=== PATIENT | female | born 1930 | race Caucasian/White ===

== ENCOUNTER → 2016-09-22 | Outpatient (REF) | payer MEDICARE ==
[~2016-09-22] MED LIST: /FENT50PA TD; /FENT75PA TD; /MIRT15TA OR; /SUCR1TA OR; /WARF25TA OR; /WARF5TA OR; ACET65TA OR; ATEN25TA OR; ATEN50TA2 OR; CARA1TAB2 PO; CIPR500T19 OR; COLA100C2 OR; FENT50DI21 TD; FERR325T OR; FURO40TA2 OR; ISOS10TA2 OR; ISOS20TA3 OR; LIDO5DIS EX; LIDODERM PATCH; MEGE40TA2 OR; MEGESTROL ACETATE; MILKSUS OR; NEUR100C OR; NORCOTAB PO; PRIL20CA OR; PRIL40CA OR; PRIL40CA PO; REME15TA OR; VICO5TAB OR; WARF05TA PO; WARF1TAB OR; WARFARIN; lidoderm patch; warfarin PO
[2016-09-22 17:19] LABS: PERCENT SATURATION 13.4 % (13.2-37.4)
== END ==
LOC: M LAB REF 16:33
PROVIDERS: ATTEND Nurse Practitioner Adult Health
DX: D64.9 Anemia, unspecified (principal)

== ENCOUNTER 2016-10-02 17:44 | Emergency (ER) | payer MEDICARE ==
[~2016-10-02] VITALS: Ht 157.5 cm; Wt 53.1 kg
[2016-10-02 17:57] VITALS: BP 180/90
[2016-10-02] MEDS ORDERED: BUDE3CAP (18:10)
[2016-10-02] MEDS ORDERED: MONT10TA2 (18:10)
[2016-10-02] MEDS ORDERED: ATOR1TAB21 (18:10)
[2016-10-02] MEDS ORDERED: ELIQ5TAB (18:10)
[2016-10-02] MEDS ORDERED: ATEN50TA2 (18:10)
[2016-10-02] MEDS ORDERED: ASPIRIN 81 MG CHEW TABLET PO ONE (18:30)
[2016-10-02 19:05] LABS: MEAN CORPUSCULAR HEMOGLOBIN 31.7 pg (27.0-33.0); MEAN CORPUSCULAR HGB CONC 32.6 g/dl (32.0-36.5); MEAN CORPUSCULAR VOLUME 97.1 fl (80.0-96.0); RED CELL DISTRIBUTION WIDTH 13.4 % (11.5-14.5); WHITE BLOOD COUNT 4.3 K/mm3 (4.0-10.0)
[2016-10-02 19:31] LABS: BASOPHILS 1 % (0-4); EOSINOPHILS 2 % (0-5)
[2016-10-02 19:32] LABS: HYPOCHROMASIA 2+
[2016-10-02 19:38] LABS: ANION GAP 8 MEQ/L (8-16); BLOOD UREA NITROGEN 13 MG/DL (7-18); CALCIUM LEVEL 9.1 MG/DL (8.8-10.2); CARBON DIOXIDE LEVEL 27 MEQ/L (21-32); CHLORIDE LEVEL 106 MEQ/L (98-107); CREATININE FOR GFR 0.67 MG/DL (0.55-1.02); GLOMERULAR FILTRATION RATE > 60.0 (>32); GLUCOSE, FASTING 100 MG/DL (83-110); SODIUM LEVEL 141 MEQ/L (136-145)
[2016-10-02] MEDS ORDERED: ISOVUE-370 76% 100ML VIAL (Q9967) As Ordered ONE (19:40)
[2016-10-02] MEDS ORDERED: PERCOCET 5MG/325MG TAB PO ONE (20:15)
--- NOTE | 2016-10-02 20:20 | REPUSA ---
CT of the head Clinical history: Headache. Protocol: Multiple axial CT images obtained with 5 mm slice thickness were obtained through the head without administration of contrast. Comparison: 01/01/2016. Findings: The ventricles and sulci are symmetric but prominent in size bilaterally. There are periven tricular areas of low attenuation throughout the deep white matter. There is no evidence of acute hem orrhage or infarct. There is no midline shift, mass effect, or extra-axial fluid collection. The osse ous structures are unremarkable. The visualized paranasal sinuses and mastoid air cells are clear. Impression: No acute hemorrhage or infarct. Findings are consistent with stable age-related atrophy a nd chronic small vessel ischemic disease.
--- NOTE | 2016-10-02 20:30 | REPUSA ---
CT angiogram of the chest Clinical statement: Chest pain. Technique: Multiple axial CT images were obtained from the thoracic inlet through the upper abdomen a fter a bolus administration of nonionic intravenous contrast. Coronal and sagittal reconstructions we re also obtained. Comparison: None. Findings: The pulmonary arteries are well-opacified with contrast, with no intraluminal filling defec ts to suggest embolism. The thoracic aorta is unremarkable. Thyroid gland is within normal limits. Th ere is no thoracic lymphadenopathy. There are no pericardial or pleural effusions. The lungs are izzy r, other than minimal atelectasis in the medial right lung base. Limited imaging of the upper abdomen is unremarkable. There are no suspicious osseous lesions. Impression: Unremarkable CT examination of the chest. No evidence of pulmonary embolism. Minimal atel ectasis in the medial right lung base.
[2016-10-02] MEDS ORDERED: OXYCODONE/APAP 5MG/325MG(BULK FOR ED) 1 TABLET PO ONE (21:30)
--- NOTE | 2016-10-03 01:06 | REP ---
Clinical: Pain. Technique: Internal rotation, external rotation, and Y view. Findings: Three views of the left shoulder demonstrates age-related osteopenia and advanced degenerative changes including osteophytosis at the acromioclavicular joint, cortical irregularities involving the acromion and humeral head as well as near complete obliteration of the subacromial space. No acute fracture dislocation. Impression: Advanced osteoarthritic degenerative changes. Signed by Jameel Hopper MD 10/03/2016 12:56 A
--- NOTE | 2016-10-03 08:36 | ECGEPIP ---
Stationary ECG Study 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
== END 2016-10-02 22:02 | disposition home or self-care (01) ==
LOC: M ED 18:22
DX: M25.512 Pain in left shoulder (principal); I48.91 Unspecified atrial fibrillation; I50.9 Heart failure, unspecified; M54.2 Cervicalgia; H92.02 Otalgia, left ear; K57.92 Diverticulitis of intestine, part unspecified, without perforation or abscess without bleeding; Z79.899 Other long term (current) drug therapy; Z79.01 Long term (current) use of anticoagulants
CPT/HCPCS: 70450; 71275; 73030; 80048; 82550; 82553; 84484; 85007; 85027; 93005; 99284; Q9967

== ENCOUNTER 2016-12-24 08:03 | Emergency (ER) | payer MEDICARE ==
[~2016-12-24 08:03] MED LIST changes: +ATEN50TA2; +ATOR1TAB21; +BUDE3CAP; +ELIQ5TAB PO; +MONT10TA2
[2016-12-24] MEDS ORDERED: ASPIRIN 81 MG CHEW TABLET PO ONE (08:30)
[2016-12-24 08:50] LABS: BASO % 0.6 % (0.0-1.0); EOS # 0.1 K/mm3 (0.0-0.50); EOS % 3.4 % (0.0-3.0); LARGE UNSTAINED CELL % 1.1 % (0.0-4.0); LYMPH # 0.8 K/mm3 (1.5-4.5); LYMPH % 19.9 % (24.0-44.0); MEAN CORPUSCULAR HEMOGLOBIN 30.9 pg (27.0-33.0); MEAN CORPUSCULAR HGB CONC 32.2 g/dl (32.0-36.5); MEAN CORPUSCULAR VOLUME 96.1 fl (80.0-96.0); MONO # 0.4 K/mm3 (0.0-0.8); MONO % 9.4 % (0.0-5.0); NEUTROPHILS # 2.5 K/mm3 (1.8-7.7); NEUTROPHILS % 65.5 % (36.0-66.0); PLATELET COUNT, AUTOMATED 207 k/mm3 (150-450); RED CELL DISTRIBUTION WIDTH 13.4 % (11.5-14.5); WHITE BLOOD COUNT 3.8 K/mm3 (4.0-10.0)
[2016-12-24] MEDS ORDERED: GABA-279 PO (08:51)
[2016-12-24] MEDS ORDERED: ISOS20TAB PO (08:51)
[2016-12-24] MEDS ORDERED: OMEP40CA2 PO (08:51)
[2016-12-24] MEDS ORDERED: OXYC1TAB23 PO (08:51)
[2016-12-24] MEDS ORDERED: MIRT15TA3 PO (08:51)
--- NOTE | 2016-12-24 08:51 | REP ---
Chest one-view HISTORY: Chest pain Comparison: 12/17/2015 A minimal increase in interstitial markings is present in the lungs consistent with chronic interstitial fibrosis. The heart is upper limits of normal in size. The pulmonary vasculature is normal in appearance. Degenerative change is present in the shoulders. Impression: Chronic interstitial fibrosis. Signed by Issa Pierce MD 12/24/2016 08:42 A
[2016-12-24 08:54] LABS: INR 1.18
[2016-12-24 09:15] LABS: ALBUMIN 3.8 GM/DL (3.2-5.2); ALBUMIN/GLOBULIN RATIO 1.09 (1.00-1.93); ALKALINE PHOSPHATASE 111 U/L (45-117); ALT/SGPT 21 U/L (12-78); ANION GAP 10 MEQ/L (8-16); AST/SGOT 19 U/L (15-37); BILIRUBIN,DIRECT 0.2 MG/DL (0.0-0.2); BILIRUBIN,TOTAL 0.5 MG/DL (0.2-1.0); BLOOD UREA NITROGEN 15 MG/DL (7-18); CALCIUM LEVEL 8.6 MG/DL (8.8-10.2); CARBON DIOXIDE LEVEL 27 MEQ/L (21-32); CHLORIDE LEVEL 109 MEQ/L (98-107); CREATININE FOR GFR 0.77 MG/DL (0.55-1.02); FREE T4 1.26 NG/DL (0.76-1.46); GLOMERULAR FILTRATION RATE > 60.0 (>32); GLUCOSE, FASTING 98 MG/DL (83-110); POTASSIUM SERUM 4.7 MEQ/L (3.5-5.1); SODIUM LEVEL 146 MEQ/L (136-145); TOTAL PROTEIN 7.3 GM/DL (6.4-8.2)
[2016-12-24 13:12] VITALS: BP 140/89
--- NOTE | 2016-12-25 08:28 | ECGEPIP ---
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
--- NOTE | 2016-12-25 08:32 | ECGEPIP ---
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
== END 2016-12-24 13:13 | disposition home or self-care (01) ==
LOC: M ED 08:03
DX: R07.9 Chest pain, unspecified (principal); I50.9 Heart failure, unspecified; I49.9 Cardiac arrhythmia, unspecified; I11.0 Hypertensive heart disease with heart failure; D75.9 Disease of blood and blood-forming organs, unspecified; M54.9 Dorsalgia, unspecified; K59.00 Constipation, unspecified; Z91.030 Bee allergy status; Z88.8 Allergy status to other drugs, medicaments and biological substances; Z79.899 Other long term (current) drug therapy; Z79.01 Long term (current) use of anticoagulants

== ENCOUNTER → 2017-02-06 | Outpatient (REF) | payer MEDICARE ==
[~2017-02-06] MED LIST changes: +AZIT-12 PO; +GABA-279 PO; +HYDR-3713 PO; +IMOD2CAP PO; +ISOS20TAB PO; +MIRT15TA3 PO; +NITR4TASL SL; +OMEP40CA2 PO; +OXYC1TAB23 PO; +POTA20TA PO; +SUCR1SUS PO
[2017-02-06 13:30] LABS: EOS # 0.1 10^3/uL (0.0-0.50); EOS % 2.3 % (0.0-3.0); LYMPH # 0.8 10^3/uL (1.5-4.5); LYMPH % 20.8 % (24.0-44.0); MEAN CORPUSCULAR HEMOGLOBIN 30.3 pg (27.0-33.0); MEAN CORPUSCULAR HGB CONC 31.8 g/dl (32.0-36.5); MEAN CORPUSCULAR VOLUME 95.2 fl (80.0-96.0); MONO # 0.5 10^3/uL (0.0-0.8); MONO % 14.1 % (0.0-5.0); NEUTROPHILS # 2.4 10^3/uL (1.8-7.7); NEUTROPHILS % 61.8 % (36.0-66.0); PLATELET COUNT, AUTOMATED 177 10^3/uL (150-450); WHITE BLOOD COUNT 3.8 10^3/uL (4.0-10.0)
[2017-02-06 13:34] LABS: ADD MANUAL DIFFER NO; DIFF SLIDE NUMBER 219
[2017-02-06 13:38] LABS: ALBUMIN 3.7 GM/DL (3.2-5.2); ALBUMIN/GLOBULIN RATIO 1.16 (1.00-1.93); ALKALINE PHOSPHATASE 104 U/L (45-117); ALT/SGPT 23 U/L (12-78); ANION GAP 6 MEQ/L (8-16); AST/SGOT 18 U/L (15-37); BILIRUBIN,TOTAL 0.5 MG/DL (0.2-1.0); BLOOD UREA NITROGEN 19 MG/DL (7-18); CALCIUM LEVEL 8.8 MG/DL (8.8-10.2); CARBON DIOXIDE LEVEL 28 MEQ/L (21-32); CHLORIDE LEVEL 108 MEQ/L (98-107); CREATININE FOR GFR 0.68 MG/DL (0.55-1.02); GLOMERULAR FILTRATION RATE > 60.0 (>32); GLUCOSE, FASTING 99 MG/DL (83-110); POTASSIUM SERUM 4.3 MEQ/L (3.5-5.1); SODIUM LEVEL 142 MEQ/L (136-145); TOTAL PROTEIN 6.9 GM/DL (6.4-8.2)
[2017-02-06 14:42] LABS: ERYTHROCYTE SEDIMENTATION RATE 25 mm/hr (0-42)
== END ==
LOC: M LABDRWAD 12:19
PROVIDERS: ATTEND Physician Assistant
DX: R51 Headache (principal)

== ENCOUNTER 2017-03-09 14:39 | Inpatient (IN) | payer MEDICARE ==
[~2017-03-09] VITALS: Ht 154.9 cm; Wt 58.0 kg
[~2017-03-09 14:39] MED LIST changes: -AZIT-12 PO; -HYDR-3713 PO; -IMOD2CAP PO; -NITR4TASL SL; -POTA20TA PO; -SUCR1SUS PO
[2017-03-09] MEDS ORDERED: SUCR1SUS PO (14:49)
[2017-03-09] MEDS ORDERED: HYDR-3713 PO (14:49)
[2017-03-09] MEDS ORDERED: IMOD2CAP PO (14:51)
[2017-03-09] MEDS ORDERED: NS 1,000 ML IV SCH (15:01)
[2017-03-09] MEDS ORDERED: NS 500 ML IV ONE (15:15)
[2017-03-09] MEDS ORDERED: ONDANSETRON 4MG/2ML VIAL (J2405) IV ONE (15:15)
[2017-03-09] MEDS ORDERED: MORPHINE 2 MG/ML 1ML SYRINGE IV PRN (15:15)
[2017-03-09 15:28] LABS: BASO % 0.3 % (0.0-1.0); EOS # 0.1 10^3/uL (0.0-0.50); EOS % 1.1 % (0.0-3.0); IMMATURE GRANULOCYTE % 0.8 % (0-0); LYMPH # 1.3 10^3/uL (1.5-4.5); LYMPH % 15.7 % (24.0-44.0); MEAN CORPUSCULAR HEMOGLOBIN 30.5 pg (27.0-33.0); MEAN CORPUSCULAR HGB CONC 32.7 g/dl (32.0-36.5); MEAN CORPUSCULAR VOLUME 93.3 fl (80.0-96.0); MONO # 1.9 10^3/uL (0.0-0.8); MONO % 24.3 % (0.0-5.0); NEUTROPHILS # 4.6 10^3/uL (1.8-7.7); NEUTROPHILS % 57.8 % (36.0-66.0); PLATELET COUNT, AUTOMATED 264 10^3/uL (150-450); RED CELL DISTRIBUTION WIDTH 14.8 % (11.5-14.5)
[2017-03-09 15:41] LABS: INR 1.56
[2017-03-09] MEDS ORDERED: ISOVUE-370 76% 100ML VIAL (Q9967) As Ordered ONE (15:44)
[2017-03-09 15:58] LABS: ALBUMIN 3.2 GM/DL (3.2-5.2); ALKALINE PHOSPHATASE 97 U/L (45-117); ALT/SGPT 27 U/L (12-78); ANION GAP 8 MEQ/L (8-16); AST/SGOT 22 U/L (7-37); BILIRUBIN,DIRECT 0.2 MG/DL (0.0-0.2); BILIRUBIN,TOTAL 0.4 MG/DL (0.2-1.0); BLOOD UREA NITROGEN 24 MG/DL (7-18); CALCIUM LEVEL 8.9 MG/DL (8.8-10.2); CARBON DIOXIDE LEVEL 27 MEQ/L (21-32); CHLORIDE LEVEL 108 MEQ/L (98-107); CREATININE FOR GFR 0.83 MG/DL (0.55-1.02); GLOMERULAR FILTRATION RATE > 60.0 (>32); GLUCOSE, FASTING 111 MG/DL (83-110); SODIUM LEVEL 143 MEQ/L (136-145); TOTAL PROTEIN 6.4 GM/DL (6.4-8.2)
[2017-03-09 16:15] LABS: POTASSIUM SERUM 2.8 MEQ/L (3.5-5.1)
[2017-03-09] MEDS ORDERED: POTASSIUM CHLORIDE 10 MEQ SR TABLET PO ONE (16:30)
--- NOTE | 2017-03-09 16:46 | REP ---
CT of the abdomen pelvis with IV contrast, without bowel contrast: The visualized lung hill are unremarkable. The hepatic parenchyma is homogeneous and unremarkable. The patient has a cholecystectomy. The common biliary duct measures 2.5 cm in diameter is markedly distended. This is unchanged from the prior study. However, do not identify intrahepatic biliary duct dilatation. The pancreas appears atrophic but is otherwise unremarkable. The spleen is unremarkable except for calcified granuloma. The adrenals and kidneys are unremarkable. Abdominal aorta is unremarkable. There is no bowel distension or obstruction. However, there is bowel wall thickening and mucosal enhancement of the transverse colon, descending colon and sigmoid colon compatible with colitis in the appropriate clinical setting. On the comparison study there was significant diverticulosis of the descending colon and sigmoid colon. The diverticuli are effaced on the current study from the colonic wall thickening. There is no ascites. Pelvis: There is beam-hardening artifact from the left hip arthroplasty obscuring visualization. The patient indicates she has a hysterectomy. There is no ascites or adenopathy. Impression: Wall thickening and mucosal enhancement of the transverse colon, descending colon and sigmoid colon compatible with colitis in the appropriate clinical context. There is chronic marked dilatation of the common biliary duct, unchanged from the prior study. No definite intrahepatic biliary duct dilatation. No ascites. No bowel distension or obstruction. Signed by Justin Kumar MD 03/09/2017 04:38 P
[2017-03-09] MEDS ORDERED: NITR4TASL SL (16:56)
[2017-03-09] MEDS ORDERED: MAG SULF 1GM/100ML (MAG RUN) 1 GM in APPROPRIATE DILUENT 1 EA IV ONE (17:15)
[2017-03-09] MEDS ORDERED: NORCO, ANEXSIA 5/325MG TABLET (HYDROcodone/ACETAMINOPHEN) PO PRN ×2 (17:15)
[2017-03-09 18:15] VITALS: BP 118/66
[2017-03-09] MEDS: NS 1,000 ML IV SCH ×2 (19:18→23:52)
[2017-03-09 20:30] VITALS: BP 118/68
[2017-03-09] MEDS: OMEPRAZOLE 20 MG CAP PO SCH (20:35)
[2017-03-09] MEDS: MIRTAZAPINE 15 MG TAB PO SCH (20:35)
[2017-03-09] MEDS: APIXABAN 5 MG TAB (ELIQUIS) PO SCH (20:35)
[2017-03-09] MEDS: GABAPENTIN 100 MG CAP PO SCH (20:35)
[2017-03-09] MEDS: ATENOLOL 50 MG TAB PO SCH (20:35)
[2017-03-09] MEDS: metroNIDAZOLE 500 MG in APPROPRIATE DILUENT 1 EA IV SCH (20:41)
[2017-03-09] MEDS ORDERED: CIPROFLOXACIN 400 MG in APPROPRIATE DILUENT 1 EA IV SCH (21:00)
[2017-03-09 23:19] LABS: ANION GAP 9 MEQ/L (8-16); BLOOD UREA NITROGEN 18 MG/DL (7-18); CALCIUM LEVEL 8.1 MG/DL (8.8-10.2); CARBON DIOXIDE LEVEL 23 MEQ/L (21-32); CHLORIDE LEVEL 112 MEQ/L (98-107); CREATININE FOR GFR 0.64 MG/DL (0.55-1.02); GLOMERULAR FILTRATION RATE > 60.0 (>32); GLUCOSE, FASTING 113 MG/DL (83-110); MAGNESIUM LEVEL 1.8 MG/DL (1.8-2.4); POTASSIUM SERUM 2.9 MEQ/L (3.5-5.1); SODIUM LEVEL 144 MEQ/L (136-145)
[2017-03-09] MEDS ORDERED: POTASSIUM CHLORIDE INJ 40 MEQ in D5W/LR 1,000 ML IV SCH (23:45)
[2017-03-09] MEDS: KCL 10MEQ IN 100ML SWI (KRUN) 100 ML IV SCH (23:52)
[2017-03-10] MEDS: KCL 10MEQ IN 100ML SWI (KRUN) 100 ML IV SCH ×4 (01:48→06:59)
[2017-03-10] MEDS ORDERED: KCL 20MEQ IN 100ML SWI (KRUN) 20 MEQ in APPROPRIATE DILUENT 1 EA IV SCH ×2 (04:15)
--- NOTE | 2017-03-10 04:33 | HPE ---
DATE OF ADMISSION: 03/09/2017 This is a patient of Michelle Rowan. CHIEF COMPLAINT: Diarrhea. The following is a summary of her presentation: This is an 86-year-old female who has had 3 weeks of loose stools. She had multiple, multiple stools a day, has had trouble making it to the bathroom, has not been able to see her primary care provider because she is out of town. Did go to the [place] urgent care. Apparently, she was given reassurance. That was approximately a week ago on 03/02. She has taken some Imodium at home with no impact. She had fever at the beginning of her illness. She has had left-sided abdominal pain, which is worse with a bowel movement. She has experienced urgency. Did not describe any hematochezia. Has not had any vomiting. Has not taken antibiotics recently. Does have well water. No history of recent travel. No pets. PAST MEDICAL HISTORY: Notable for: 1. Paroxysmal atrial fibrillation. 2. Congestive heart failure with diastolic dysfunction. 3. Mitral valve disease. 4. Hypertension. 5. Left ventricular hypertrophy. 6. Diverticulosis. 7. Gastroesophageal reflux disease (GERD). 8. History of small bowel obstruction secondary to adhesions. SURGICAL HISTORY: Notable for: 1. Five hernia surgeries. 2. Cholecystectomy. 3. Partial hysterectomy. 4. Left knee replacement. 5. Left hip replacement. ALLERGIES: No known drug allergies. MEDICATIONS: At home include: - [place] - Eliquis - atenolol - atorvastatin - Neurontin - Imodium - mirtazapine - sublingual nitroglycerin - omeprazole - sucralfate REVIEW OF SYSTEMS: Notable for frontal headache, which is new in the last few days. No visual changes. No runny nose. No sore throat. No cough. No shortness of breath. No palpitations. Abdominal pain as previously described, otherwise unremarkable. FAMILY HISTORY: Unremarkable due to advanced age. SOCIAL HISTORY: She walks with a walker. Does not use alcohol or tobacco. Has no pets. PHYSICAL EXAMINATION: Temperature 97.2, pulse 78, respiratory rate 18, blood pressure 145/65, 94% on room air. She weighs 54 kg. She is awake, appropriately interactive, pleasantly conversant, a reasonable historian. Sinuses are nontender. Pupils equally round and reactive, anicteric, not injected. Mucous membranes are dry. Neck is supple. Breathing is symmetrical. I:E ratio is 1:3. Heart is distant sounding, normal S1, S2, irregularly irregular. Radial pulses 2+. Capillary refill is less than 2 seconds. Abdomen is soft, nondistended, non-tympanic, mild left lower quadrant tenderness without rebound or guarding. No lower extremity edema. She is moving all four extremities. Cranial nerves II-XII are grossly intact. She has normal mood and affect. White cell count is 8, hemoglobin 10.4, and platelets are 264. Potassium is 2.8, BUN 24, creatinine 0.83, and magnesium is 1.6. Liver function tests within normal range. INR is 1.56. GI panel is pending. CT of the abdomen and pelvis shows wall thickening and mucosal enhancement of the transverse colon, descending colon and sigmoid colon compatible with colitis. Chronic marked dilatation of the common bile duct. No bowel distention or obstruction. No ascites. My assessment is as follows: This is an 86-year-old with 3 weeks of diarrhea and clinical dehydration. The patient will require two-midnight hospital stay and telemetry monitoring. Plan will be as follows: 1. Gastrointestinal (GI). The patient likely has an infectious etiology for her diarrhea. I do not believe it is Clostridium (C) difficile in this context because I believe she would be sicker. Possibility of colitis does occur to me and I have started her on Flagyl and Cipro empirically. Will await GI panel and further guide treatment from there. We have started intravenous (IV) fluids. Will put her on clear liquid diet. 2. Patient has paroxysmal atrial fibrillation. We will monitor her on telemetry as she is at risk for high rate. Will continue with her Eliquis. 3. She has history of congestive heart failure, diastolic dysfunction, but appears clinically dry. Will give IV fluids. 4. Patient has hypertension. 5. Patient has left ventricular hypertrophy. 6. Patient has history of gastroesophageal reflux disease (GERD). She is on a proton pump inhibitor (PPI) and sucralfate. PPI increases her risk of C. Difficile. 7. Deep venous thrombosis (DVT) prophylaxis will be Eliquis. 8. Patient has a healthcare proxy, who she defines as Annabella Masterson.
[2017-03-10] MEDS: metroNIDAZOLE 500 MG in APPROPRIATE DILUENT 1 EA IV SCH (05:15)
[2017-03-10 05:55] VITALS: BP 115/58
[2017-03-10 06:35] LABS: MEAN CORPUSCULAR HEMOGLOBIN 29.7 pg (27.0-33.0); MEAN CORPUSCULAR HGB CONC 31.9 g/dl (32.0-36.5); MEAN CORPUSCULAR VOLUME 93.1 fl (80.0-96.0); PLATELET COUNT, AUTOMATED 232 10^3/uL (150-450); WHITE BLOOD COUNT 5.4 10^3/uL (4.0-10.0)
[2017-03-10 06:56] LABS: ANION GAP 9 MEQ/L (8-16); BLOOD UREA NITROGEN 16 MG/DL (7-18); CALCIUM LEVEL 8.1 MG/DL (8.8-10.2); CARBON DIOXIDE LEVEL 22 MEQ/L (21-32); CHLORIDE LEVEL 112 MEQ/L (98-107); CREATININE FOR GFR 0.61 MG/DL (0.55-1.02); GLOMERULAR FILTRATION RATE > 60.0 (>32); GLUCOSE, FASTING 89 MG/DL (83-110); MAGNESIUM LEVEL 1.7 MG/DL (1.8-2.4); POTASSIUM SERUM 3.2 MEQ/L (3.5-5.1); SODIUM LEVEL 143 MEQ/L (136-145)
[2017-03-10] MEDS: SUCRALFATE SUSP 1GM/10ML UD PO SCH ×3 (07:58→17:16)
[2017-03-10] MEDS: OMEPRAZOLE 20 MG CAP PO SCH ×2 (08:00→20:41)
[2017-03-10] MEDS: APIXABAN 5 MG TAB (ELIQUIS) PO SCH ×2 (08:00→20:40)
[2017-03-10] MEDS: ATORVASTATIN 20 MG TAB PO SCH (08:01)
[2017-03-10] MEDS: ATENOLOL 50 MG TAB PO SCH ×2 (08:01→20:37)
[2017-03-10] MEDS: GABAPENTIN 100 MG CAP PO SCH ×3 (08:01→20:40)
[2017-03-10] MEDS ORDERED: MAG SULF 1GM/100ML (MAG RUN) 1 GM in APPROPRIATE DILUENT 1 EA IV ONE (09:00)
[2017-03-10] MEDS: POTASSIUM CHLORIDE 10 MEQ SR TABLET PO SCH (09:44)
[2017-03-10] MEDS: AZITHROMYCIN INJ 500 MG, VIAL MATE ADAPTER 1 EACH in D5W 250 ML IV SCH (09:44)
--- NOTE | 2017-03-10 12:35 | ECGEPIP ---
Stationary ECG Study 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
[2017-03-10 14:00] VITALS: BP 108/61
--- NOTE | 2017-03-10 14:08 | IPNPDOC ---
Date Seen The patient was seen on 03/10/17. Progress Note SUBJECTIVE: Patient is a 86yo female admitted for n/v/d last evening. Feeling a little better. Denies: f/c/r, cough, prod sputum. GI panel: campylobacter OBJECTIVE PHYSICAL EXAMINATION: VITAL SIGNS: Please see below. GENERAL: NAD, A&OX3 HEENT: PERRLA, throat supple, neck supple, no JVD CARDIOVASCULAR: RRR. RESPIRATORY: CTA BILATERALLY. ABDOMINAL: soft, NT/ND, normoactive bowel sounds, nontender EXTREMITIES: no edema, no calf tenderness NEUROLOGICAL: CN II-XII Grossly intact, no deficits PSYCHOLOGICAL: negative LABORATORY DATA: Please see below. MICROBIOLOGY: Please see below. DVT prophylaxis ordered?: yes ASSESSMENT AND PLAN: This is a 86 yo female with diarrhea. PROBLEMS: 1. Gastrointestinal (GI). GI panel positive for campylobacter. Antibiotic coverage has been changed to zithromax. Advance diet and plan to d/c fluids if tolerating PO intake. 2. Patient has paroxysmal atrial fibrillation. We will monitor her on telemetry as she is at risk for high rate. Will continue with her Eliquis. 3. She has history of congestive heart failure, diastolic dysfunction, but appears clinically dry. Will give IV fluids. 4. Hypertension: stable/monitor 5. Patient has left ventricular hypertrophy: no current signs of volume overload. 6. Patient has history of gastroesophageal reflux disease (GERD). She is on a proton pump inhibitor (PPI) and sucralfate. PPI increases her risk of C. Difficile. 7. Deep venous thrombosis (DVT) prophylaxis will be Eliquis. DISPOSITION: anticipate home discharge tomorrow. VS, I&O, 24H, [place] Vital Signs/I&O Vital Signs Date Time Temp Pulse Resp B/P (MAP) Pulse Ox O2 Delivery O2 Flow Rate FiO2 03/10/17 11:47 Room Air 03/10/17 08:01 72 126/64 03/10/17 05:55 97.9 16 98 2.0 I&O- Last 24 Hours up to 6 AM 03/11/17 06:00 Intake Total 0 ml Balance 0 ml Laboratory Data 24H LABS Laboratory Tests 2 03/09/17 15:19: Immature Granulocyte % (Auto) 0.8H, White Blood Count 8.0, Red Blood Count 3.41L , Hemoglobin 10.4L, Hematocrit 31.8L, Mean Corpuscular Volume 93.3, Mean Corpuscular Hemoglobin 30.5, Mean Corpuscular Hemoglobin Concent 32.7, Red Cell Distribution Width 14.8H, Platelet Count 264, Neutrophils (%) (Auto) 57.8, Lymphocytes (%) (Auto) 15.7L, Monocytes (%) (Auto) 24.3H, Eosinophils (%) (Auto ) 1.1, Basophils (%) (Auto) 0.3, Neutrophils # (Auto) 4.6, Lymphocytes # (Auto) 1.3L, Monocytes # (Auto) 1.9H, Eosinophils # (Auto) 0.1, Basophils # (Auto) 0.0 , Immature Granulocyte # (Auto) 0.1H, Nucleated Red Blood Cells % (auto) 0.0, Prothrombin Time 19.0H, Prothromb Time International Ratio 1.56, Anion Gap 8, Glomerular Filtration Rate > 60.0, Calcium Level 8.9, Magnesium Level 1.6L, Aspartate Amino Transf (AST/SGOT) 22, Alanine Aminotransferase (ALT/SGPT) 27, Alkaline Phosphatase 97, Total Bilirubin 0.4, Direct Bilirubin 0.2, Total Protein 6.4, Albumin 3.2, Albumin/Globulin Ratio 1.00, Lipase 85 03/09/17 22:33: Anion Gap 9, Glomerular Filtration Rate > 60.0, Calcium Level 8.1L, Magnesium Level 1.8, Blood Urea Nitrogen 18, Creatinine 0.64, Sodium Level 144, Potassium Level 2.9*L, Chloride Level 112H, Carbon Dioxide Level 23 03/10/17 06:15: Nucleated Red Blood Cells % (auto) 0.0, Anion Gap 9, Glomerular Filtration Rate > 60.0, Calcium Level 8.1L, Magnesium Level 1.7L, Blood Urea Nitrogen 16, Creatinine 0.61, Sodium Level 143, Potassium Level 3.2L, Chloride Level 112H, Carbon Dioxide Level 22 CBC/BMP Laboratory Tests 03/09/17 15:19 Red Blood Count 3.41 L, Mean Corpuscular Volume 93.3, Mean Corpuscular Hemoglobin 30.5, Mean Corpuscular Hemoglobin Concent 32.7, Red Cell Distribution Width 14.8 H, Neutrophils (%) (Auto) 57.8, Lymphocytes (%) (Auto) 15.7 L, Monocytes (%) (Auto) 24.3 H, Eosinophils (%) (Auto) 1.1, Basophils (%) ( Auto) 0.3, Neutrophils # (Auto) 4.6, Lymphocytes # (Auto) 1.3 L, Monocytes # ( Auto) 1.9 H, Eosinophils # (Auto) 0.1, Basophils # (Auto) 0.0 03/09/17 22:33 Calcium Level 8.1 L 03/10/17 06:15 Red Blood Count 3.06 L, Mean Corpuscular Volume 93.1, Mean Corpuscular Hemoglobin 29.7, Mean Corpuscular Hemoglobin Concent 31.9 L, Red Cell Distribution Width 15.0 H, Calcium Level 8.1 L Microbiology Microbiology 03/09/17 Gastrointestinal Tract Panel (PCR) - Final, Complete Campylobacter CASSIDY DECKER DO Mar 10, 2017 13:56
[2017-03-10 14:27] LABS: ALBUMIN 2.6 GM/DL (3.2-5.2); ANION GAP 10 MEQ/L (8-16); BLOOD UREA NITROGEN 15 MG/DL (7-18); CALCIUM LEVEL 8.1 MG/DL (8.8-10.2); CARBON DIOXIDE LEVEL 22 MEQ/L (21-32); CHLORIDE LEVEL 112 MEQ/L (98-107); CREATININE FOR GFR 0.56 MG/DL (0.55-1.02); GLOMERULAR FILTRATION RATE > 60.0 (>32); GLUCOSE, FASTING 130 MG/DL (83-110); MAGNESIUM LEVEL 2.2 MG/DL (1.8-2.4); PHOSPHORUS LEVEL 1.9 MG/DL (2.5-4.9); POTASSIUM SERUM 3.7 MEQ/L (3.5-5.1); SODIUM LEVEL 144 MEQ/L (136-145)
--- NOTE | 2017-03-10 18:24 | ECGEPIP ---
Stationary ECG Study 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
[2017-03-10 20:20] VITALS: BP 100/58
[2017-03-10] MEDS: MIRTAZAPINE 15 MG TAB PO SCH (20:40)
[2017-03-10] MEDS: NS 1,000 ML IV SCH (22:09)
[2017-03-11 05:35] VITALS: BP 128/69
[2017-03-11 06:07] LABS: MEAN CORPUSCULAR HEMOGLOBIN 29.4 pg (27.0-33.0); MEAN CORPUSCULAR HGB CONC 31.7 g/dl (32.0-36.5); MEAN CORPUSCULAR VOLUME 92.9 fl (80.0-96.0); PLATELET COUNT, AUTOMATED 255 10^3/uL (150-450); RED CELL DISTRIBUTION WIDTH 15.2 % (11.5-14.5); WHITE BLOOD COUNT 7.3 10^3/uL (4.0-10.0)
[2017-03-11 06:31] LABS: ANION GAP 8 MEQ/L (8-16); BLOOD UREA NITROGEN 10 MG/DL (7-18); CALCIUM LEVEL 8.2 MG/DL (8.8-10.2); CARBON DIOXIDE LEVEL 22 MEQ/L (21-32); CHLORIDE LEVEL 113 MEQ/L (98-107); CREATININE FOR GFR 0.55 MG/DL (0.55-1.02); GLOMERULAR FILTRATION RATE > 60.0 (>32); GLUCOSE, FASTING 96 MG/DL (83-110); MAGNESIUM LEVEL 1.8 MG/DL (1.8-2.4); POTASSIUM SERUM 3.3 MEQ/L (3.5-5.1); SODIUM LEVEL 143 MEQ/L (136-145)
[2017-03-11] MEDS: POTASSIUM CHLORIDE 10 MEQ SR TABLET PO SCH (08:22)
[2017-03-11] MEDS: SUCRALFATE SUSP 1GM/10ML UD PO SCH ×3 (08:22→16:32)
[2017-03-11] MEDS: ATORVASTATIN 20 MG TAB PO SCH (08:23)
[2017-03-11] MEDS: GABAPENTIN 100 MG CAP PO SCH ×3 (08:23→20:17)
[2017-03-11] MEDS: OMEPRAZOLE 20 MG CAP PO SCH ×2 (08:23→20:17)
[2017-03-11] MEDS: APIXABAN 5 MG TAB (ELIQUIS) PO SCH ×2 (08:23→20:17)
[2017-03-11] MEDS: ATENOLOL 50 MG TAB PO SCH ×2 (08:23→20:18)
[2017-03-11] MEDS: AZITHROMYCIN INJ 500 MG, VIAL MATE ADAPTER 1 EACH in D5W 250 ML IV SCH (08:25)
[2017-03-11] MEDS: ACETAMINOPHEN TAB 650MG DOSE (2X325MG) PO PRN ×2 (11:20→22:32)
[2017-03-11] MEDS: NS 1,000 ML IV SCH (12:20)
[2017-03-11] MEDS: ONDANSETRON 4MG/2ML VIAL (J2405) IV PRN (12:35)
--- NOTE | 2017-03-11 12:37 | IPNPDOC ---
Date Seen The patient was seen on 03/11/17. Progress Note SUBJECTIVE: Patient is a 86yo female admitted couple nights ago for n/v/d last evening. Feeling little better. Had trouble with several loose BM's through the night last night and feels week. Denies: f/c/r, cough, prod sputum. GI panel: campylobacter OBJECTIVE PHYSICAL EXAMINATION: VITAL SIGNS: Please see below. GENERAL: NAD, A&OX3 HEENT: PERRLA, throat supple, neck supple, no JVD CARDIOVASCULAR: RRR. RESPIRATORY: CTA BILATERALLY. ABDOMINAL: soft, some distention but nontender, normoactive bowel sounds EXTREMITIES: no edema, no calf tenderness NEUROLOGICAL: CN II-XII Grossly intact, no deficits PSYCHOLOGICAL: negative LABORATORY DATA: Please see below. MICROBIOLOGY: Please see below. DVT prophylaxis ordered?: yes ASSESSMENT AND PLAN: This is a 86 yo female with diarrhea, decreased PO intake today. PROBLEMS: 1. Gastroenteritis: GI panel positive for campylobacter. Antibiotic coverage has been changed to zithromax. Advance diet, I'm concerned her PO intake has slowed down. Would like to keep her overnight for supportive therapy. 2. Patient has paroxysmal atrial fibrillation. Rate controlled. Will continue with her Eliquis. 3. Hypokalemia: supplement 4. She has history of congestive heart failure, diastolic dysfunction, but still appears clinically dry. Will give gentle IV fluids. 5. Hypertension: stable/monitor 6. Patient has left ventricular hypertrophy: no current signs of volume overload. 7. Patient has history of gastroesophageal reflux disease (GERD). She is on a proton pump inhibitor (PPI) and sucralfate. PPI increases her risk of C. Difficile. 8. Deep venous thrombosis (DVT) prophylaxis will be Eliquis. DISPOSITION: re-evaluate for potential d/c tomorrow. VS, I&O, 24H, Fishbone Vital Signs/I&O Vital Signs Date Time Temp Pulse Resp B/P (MAP) Pulse Ox O2 Delivery O2 Flow Rate FiO2 03/11/17 08:23 78 128/69 03/11/17 05:35 98.0 16 95 Room Air 03/10/17 22:00 2.0 Laboratory Data 24H LABS Laboratory Tests 2 03/10/17 12:58: Blood Urea Nitrogen 15, Creatinine 0.56, Sodium Level 144, Potassium Level 3.7, Chloride Level 112H, Carbon Dioxide Level 22, Anion Gap 10, Glomerular Filtration Rate > 60.0, Calcium Level 8.1L, Phosphorus Level 1.9L, Magnesium Level 2.2, Albumin 2.6L 03/11/17 06:00: Blood Urea Nitrogen 10, Creatinine 0.55, Sodium Level 143, Potassium Level 3.3L , Chloride Level 113H, Carbon Dioxide Level 22, Anion Gap 8, Glomerular Filtration Rate > 60.0, Calcium Level 8.2L, Magnesium Level 1.8, Nucleated Red Blood Cells % (auto) 0.0 CBC/BMP Laboratory Tests 03/10/17 12:58 Anion Gap 10 03/11/17 06:00 Red Blood Count 3.23 L, Mean Corpuscular Volume 92.9, Mean Corpuscular Hemoglobin 29.4, Mean Corpuscular Hemoglobin Concent 31.7 L, Red Cell Distribution Width 15.2 H, Calcium Level 8.2 L Microbiology Microbiology 03/11/17 Stool Occult Blood (ABISAI) - Final, Complete 03/09/17 Gastrointestinal Tract Panel (PCR) - Final, Complete Campylobacter CASSIDY DECKER DO Mar 11, 2017 12:37
[2017-03-11 14:00] VITALS: BP 123/94
[2017-03-11] MEDS: MIRTAZAPINE 15 MG TAB PO SCH (20:17)
[2017-03-11 22:00] VITALS: BP 146/77
[2017-03-12 05:52] LABS: MEAN CORPUSCULAR HGB CONC 32.1 g/dl (32.0-36.5); MEAN CORPUSCULAR VOLUME 93.6 fl (80.0-96.0); PLATELET COUNT, AUTOMATED 277 10^3/uL (150-450); WHITE BLOOD COUNT 6.2 10^3/uL (4.0-10.0)
[2017-03-12 06:00] VITALS: BP 140/85
[2017-03-12 06:13] LABS: ANION GAP 8 MEQ/L (8-16); BLOOD UREA NITROGEN 5 MG/DL (7-18); CALCIUM LEVEL 8.1 MG/DL (8.8-10.2); CARBON DIOXIDE LEVEL 23 MEQ/L (21-32); CHLORIDE LEVEL 115 MEQ/L (98-107); CREATININE FOR GFR 0.47 MG/DL (0.55-1.02); GLOMERULAR FILTRATION RATE > 60.0 (>32); GLUCOSE, FASTING 81 MG/DL (83-110); MAGNESIUM LEVEL 1.6 MG/DL (1.8-2.4); POTASSIUM SERUM 3.3 MEQ/L (3.5-5.1); SODIUM LEVEL 146 MEQ/L (136-145)
[2017-03-12] MEDS: NS 1,000 ML IV SCH ×2 (06:29→08:31)
[2017-03-12] MEDS: OMEPRAZOLE 20 MG CAP PO SCH ×2 (08:28→20:29)
[2017-03-12] MEDS: GABAPENTIN 100 MG CAP PO SCH ×3 (08:28→20:28)
[2017-03-12] MEDS: ATORVASTATIN 20 MG TAB PO SCH (08:28)
[2017-03-12] MEDS: SUCRALFATE SUSP 1GM/10ML UD PO SCH ×3 (08:28→17:00)
[2017-03-12] MEDS: AZITHROMYCIN 250 MG TAB PO SCH (08:29)
[2017-03-12] MEDS: APIXABAN 5 MG TAB (ELIQUIS) PO SCH ×2 (08:29→20:28)
[2017-03-12] MEDS: POTASSIUM CHLORIDE 10 MEQ SR TABLET PO SCH (08:29)
[2017-03-12] MEDS: ATENOLOL 50 MG TAB PO SCH ×2 (08:30→20:29)
[2017-03-12] MEDS: MAG SULF 1GM/100ML (MAG RUN) 1 GM in APPROPRIATE DILUENT 1 EA IV SCH ×2 (10:38→11:45)
--- NOTE | 2017-03-12 13:13 | IPNPDOC ---
Date Seen The patient was seen on 03/12/17. Progress Note SUBJECTIVE: Patient is a 86yo female admitted couple a few days ago for n/v/d. Having less but still several BM's through the night last night and still feels week. PT indicates she needs a few more treatment sessions. Denies: f/c/r, cough, prod sputum, n/v/d. GI panel: campylobacter and currently on Zithromax PO. OBJECTIVE PHYSICAL EXAMINATION: VITAL SIGNS: Please see below. GENERAL: NAD, A&OX3 HEENT: PERRLA, throat supple, neck supple, no JVD CARDIOVASCULAR: RRR. RESPIRATORY: CTA BILATERALLY. ABDOMINAL: soft, NT/ND, normoactive bowel sounds, no rebound EXTREMITIES: no edema, no calf tenderness NEUROLOGICAL: CN II-XII Grossly intact, no deficits PSYCHOLOGICAL: negative LABORATORY DATA: Please see below. MICROBIOLOGY: Please see below. DVT prophylaxis ordered?: yes ASSESSMENT AND PLAN: This is a 86 yo female with diarrhea, decreased PO intake today. PROBLEMS: 1. Gastroenteritis: GI panel positive for campylobacter. Currently on Zithromax. Tolerating diet better. Having less loose stool. Would like to keep her overnight for supportive therapy and further sessions with PT. 2. Patient has paroxysmal atrial fibrillation. Rate controlled. Will continue with her Eliquis. 3. Hypokalemia: will supplement 4. Hypomagnesemia: will supplement 5. Mild anemia: likely hemodilutional, d/c fluids and re-evaluate tomorrow with a.m. labs. 4. She has history of congestive heart failure, diastolic dysfunction. Appears clinically compensated 5. Hypertension: stable/monitor 6. Patient has left ventricular hypertrophy: no current signs of volume overload. 7. Patient has history of gastroesophageal reflux disease (GERD). She is on a proton pump inhibitor (PPI) and sucralfate. PPI increases her risk of C. Difficile. 8. Deep venous thrombosis (DVT) prophylaxis will be Eliquis. DISPOSITION: Needs a few more PT sessions, PFS will be here tomorrow and will determine if home with services. Her sons were present at bedside this morning and agrees this is likely the safest plan for her discharge. VS, I&O, 24H, Fishbone Vital Signs/I&O Vital Signs Date Time Temp Pulse Resp B/P (MAP) Pulse Ox O2 Delivery O2 Flow Rate FiO2 03/12/17 08:40 Room Air 03/12/17 08:30 83 154/78 03/12/17 06:00 96.8 18 98 2.0 I&O- Last 24 Hours up to 6 AM 03/13/17 06:00 Intake Total 460 ml Output Total 350 ml Balance 110 ml Laboratory Data 24H LABS Laboratory Tests 2 03/12/17 05:39: Nucleated Red Blood Cells % (auto) 0.0, Anion Gap 8, Glomerular Filtration Rate > 60.0, Blood Urea Nitrogen 5L, Creatinine 0.47L, Sodium Level 146H, Potassium Level 3.3L, Chloride Level 115H, Carbon Dioxide Level 23, Calcium Level 8.1L, Magnesium Level 1.6L CBC/BMP Laboratory Tests 03/12/17 05:39 Red Blood Count 3.13 L, Mean Corpuscular Volume 93.6, Mean Corpuscular Hemoglobin 30.0, Mean Corpuscular Hemoglobin Concent 32.1, Red Cell Distribution Width 15.0 H, Calcium Level 8.1 L Microbiology Microbiology 03/11/17 Stool Occult Blood (ABISAI) - Final, Complete 03/09/17 Gastrointestinal Tract Panel (PCR) - Final, Complete Campylobacter CASSIDY DECKER DO Mar 12, 2017 13:13
[2017-03-12 14:00] VITALS: BP 132/85
[2017-03-12] MEDS: ACETAMINOPHEN TAB 650MG DOSE (2X325MG) PO PRN ×2 (14:27→20:28)
[2017-03-12] MEDS: ONDANSETRON 4MG/2ML VIAL (J2405) IV PRN (17:00)
[2017-03-12] MEDS: MIRTAZAPINE 15 MG TAB PO SCH (20:28)
[2017-03-12 22:00] VITALS: BP 121/65
[2017-03-13 06:00] VITALS: BP 147/68
[2017-03-13 06:33] LABS: MEAN CORPUSCULAR HEMOGLOBIN 30.1 pg (27.0-33.0); MEAN CORPUSCULAR HGB CONC 32.4 g/dl (32.0-36.5); MEAN CORPUSCULAR VOLUME 92.9 fl (80.0-96.0); PLATELET COUNT, AUTOMATED 280 10^3/uL (150-450); RED CELL DISTRIBUTION WIDTH 15.2 % (11.5-14.5); WHITE BLOOD COUNT 6.2 10^3/uL (4.0-10.0)
[2017-03-13 06:58] LABS: ANION GAP 7 MEQ/L (8-16); BLOOD UREA NITROGEN 3 MG/DL (7-18); CALCIUM LEVEL 8.3 MG/DL (8.8-10.2); CARBON DIOXIDE LEVEL 24 MEQ/L (21-32); CHLORIDE LEVEL 113 MEQ/L (98-107); CREATININE FOR GFR 0.49 MG/DL (0.55-1.02); GLOMERULAR FILTRATION RATE > 60.0 (>32); GLUCOSE, FASTING 86 MG/DL (83-110); MAGNESIUM LEVEL 1.9 MG/DL (1.8-2.4); POTASSIUM SERUM 3.3 MEQ/L (3.5-5.1); SODIUM LEVEL 144 MEQ/L (136-145)
[2017-03-13] MEDS ORDERED: POTA20TA PO (07:18)
[2017-03-13] MEDS ORDERED: AZIT-12 PO (07:18)
[2017-03-13] MEDS: APIXABAN 5 MG TAB (ELIQUIS) PO SCH ×2 (08:44→21:14)
[2017-03-13] MEDS: AZITHROMYCIN 250 MG TAB PO SCH (08:44)
[2017-03-13] MEDS: SUCRALFATE SUSP 1GM/10ML UD PO SCH ×3 (08:44→16:31)
[2017-03-13] MEDS: ATENOLOL 50 MG TAB PO SCH ×2 (08:44→21:15)
[2017-03-13] MEDS: OMEPRAZOLE 20 MG CAP PO SCH ×2 (08:44→21:14)
[2017-03-13] MEDS: GABAPENTIN 100 MG CAP PO SCH ×3 (08:45→21:14)
[2017-03-13] MEDS: ATORVASTATIN 20 MG TAB PO SCH (08:45)
[2017-03-13] MEDS: POTASSIUM CHLORIDE 10 MEQ SR TABLET PO SCH (08:45)
[2017-03-13] MEDS: ACETAMINOPHEN TAB 650MG DOSE (2X325MG) PO PRN ×2 (10:29→21:15)
[2017-03-13 14:00] VITALS: BP 112/54
--- NOTE | 2017-03-13 15:30 | DS.PDOC ---
Discharge Summary General Date of Admission Mar 09, 2017 at 17:15 Date of Discharge Mar 14, 2017 Primary Care Physician: Aniyah Rowan Attending Physician: CASSIDY DECKER DO Discharge Summary CONSULTS: None PROCEDURES: None COMPLICATIONS: None ADMISSION / DISCHARGE DIAGNOSIS: 1. Gastroenteritis related to Campylobacter 2. Paroxysmal atrial fibrillation. 3. Hypokalemia: will supplement 4. Hypomagnesemia: will supplement 5. Mild anemia: likely hemodilutional no symptoms 6. She has history of congestive heart failure, diastolic dysfunction: compensated 7. Hypertension: stable/monitor 8. Patient has left ventricular hypertrophy: no current signs of volume overload. 9. GERD BRIEF HOSPITAL COURSE: 86 yo female presented with weakness, diarrhea and gastroenteritis. GI panel resulted campylobacter. Started Zithromax, given IVfluids and needed a few days of PT. On date of discharge was felt to be at baseline. PHYSICAL EXAMINATION ON DISCHARGE: VITAL SIGNS: Please see below. GENERAL: NAD, A&OX3 HEENT: PERRLA, throat clear, neck supple, no JVD CARDIOVASCULAR EXAMINATION: RRR RESPIRATORY EXAMINATION: CTA bilaterally ABDOMINAL EXAMINATION: soft, NT/ND, normoactive bowel sounds EXTREMITIES: no edema no calf tenderness SKIN: intact NEUROLOGICAL EXAMINATION: CN'S II-XII grossly intact PSYCHIATRIC EXAMINATION: stable DISCHARGE MEDICATIONS: See below DISCHARGE CONDITION: GOOD DISPOSITION: DISCHARGE TO HOME UNDER CARE OF HER FAMILY DISCHARGE INSTRUCTIONS: Activity: as tolerated Diet: regular Follow up: Aniyah Rowan in one week Finish all of zithromax. Seek medical attention should symptoms worsen or progress. Voiced understanding by patient and/or caregiver. TRANSITION OF CARE ISSUES: None. TIME SPENT ON DISCHARGE: greater than 35 minutes Vital Signs/I&Os Vital Signs Date Time Temp Pulse Resp B/P (MAP) Pulse Ox O2 Delivery O2 Flow Rate FiO2 03/13/17 14:00 99.0 84 20 112/54 (73) 99 Room Air 03/13/17 06:00 2.0 I&O- Last 24 Hours up to 6 AM 03/14/17 06:00 Intake Total 540 ml Balance 540 ml Laboratory Data Labs 24H Laboratory Tests 2 03/13/17 05:55: Nucleated Red Blood Cells % (auto) 0.0, Anion Gap 7L, Glomerular Filtration Rate > 60.0, Blood Urea Nitrogen 3L, Creatinine 0.49L, Sodium Level 144, Potassium Level 3.3L, Chloride Level 113H, Carbon Dioxide Level 24, Calcium Level 8.3L, Magnesium Level 1.9 CBC/BMP Laboratory Tests 03/13/17 05:55 Red Blood Count 3.09 L, Mean Corpuscular Volume 92.9, Mean Corpuscular Hemoglobin 30.1, Mean Corpuscular Hemoglobin Concent 32.4, Red Cell Distribution Width 15.2 H, Calcium Level 8.3 L Microbiology Microbiology 03/11/17 Stool Occult Blood (ABISAI) - Final, Complete 03/09/17 Gastrointestinal Tract Panel (PCR) - Final, Complete Campylobacter Discharge Medications Scheduled Apixaban Base (Eliquis) 5 Mg Tab, 5 MG PO BID, (Reported) Atenolol (Atenolol) 50 Mg Tab, 50 MG BID, (Reported) Atorvastatin Calcium (Atorvastatin Calcium) 20 Mg Tab, 20 MG DAILY, (Reported) Azithromycin (Azithromycin) 250 Mg Tab, 500 MG PO DAILY Gabapentin (Gabapentin) 100 Mg Cap, 100 MG PO TID, (Reported) Mirtazapine (Mirtazapine) 15 Mg Tab, 15 MG PO QHS, (Reported) Omeprazole (Omeprazole) 40 Mg Cap, 40 MG PO BID, (Reported) Potassium Chloride (Klor-Con M20) 20 Meq Tabcr, 20 MEQ PO DAILY Sucralfate (Sucralfate) 1 Gm/10 Ml Elsie, 1 GM PO AC, (Reported) Scheduled PRN (Imodium A-D) 2 Mg Cap, 2 MG PO PRN PRN for DIARRHEA, (Reported) Acetaminophen/Hydrocodone (Hydrocodone/Acetaminophen 5-325 mg) 1 Tab Tab, 1 TAB PO BID PRN for PAIN, (Reported) Nitroglycerin (Nitrostat) 0.4 Mg Subl, 0.4 MG SL NITRO PRN for CHEST PAIN, ( Reported) Allergies Coded Allergies: Bee Venom (Verified Allergy, Unknown, 03/09/17) Celecoxib (Verified Adverse Reaction, Intermediate, GI PAIN, 03/09/17) CASSIDY DECKER DO Mar 13, 2017 15:29
--- NOTE | 2017-03-13 15:43 | IPNPDOC ---
Date Seen The patient was seen on 03/13/17. Progress Note SUBJECTIVE: Patient is a 86yo female admitted couple a few days ago for n/v/d. Having less but still several BM's through the night last night and still feels week. PT indicates she needs one more treatmen/one more night.. Denies: f/c/r, cough, prod sputum, n/v/d. GI panel: campylobacter and currently on Zithromax PO. OBJECTIVE PHYSICAL EXAMINATION: VITAL SIGNS: Please see below. GENERAL: NAD, A&OX3 HEENT: PERRLA, throat supple, neck supple, no JVD CARDIOVASCULAR: RRR. RESPIRATORY: CTA BILATERALLY. ABDOMINAL: soft, NT/ND, normoactive bowel sounds, no rebound EXTREMITIES: no edema, no calf tenderness NEUROLOGICAL: CN II-XII Grossly intact, no deficits PSYCHOLOGICAL: negative LABORATORY DATA: Please see below. MICROBIOLOGY: Please see below. DVT prophylaxis ordered?: yes ASSESSMENT AND PLAN: This is a 86 yo female with diarrhea (improved), better PO intake today. PROBLEMS: 1. Gastroenteritis: GI panel positive for campylobacter. Currently on Zithromax. Tolerating PO intake.. Having less loose stool. Would like to keep her overnight for supportive therapy and another session with PT. 2. Patient has paroxysmal atrial fibrillation. Rate controlled. Will continue with her Eliquis. 3. Hypokalemia: repeated daily 4. Hypomagnesemia: resolved 5. Mild anemia: likely hemodilutional, d/c fluids, she's asymptomatic. Will repeat labs tomorrow. 4. She has history of congestive heart failure, diastolic dysfunction. Appears clinically compensated 5. Hypertension: stable/monitor 6. Patient has left ventricular hypertrophy: no current signs of volume overload. 7. Patient has history of gastroesophageal reflux disease (GERD). She is on a proton pump inhibitor (PPI) and sucralfate. PPI increases her risk of C. Difficile. 8. Deep venous thrombosis (DVT) prophylaxis: Eliquis. DISPOSITION: Needs one more PT session, PFS following and will determine if home with services. Her sons were present at bedside this morning and agrees this is likely the safest plan for her discharge. VS, I&O, 24H, Fishbone Vital Signs/I&O Vital Signs Date Time Temp Pulse Resp B/P (MAP) Pulse Ox O2 Delivery O2 Flow Rate FiO2 03/13/17 14:00 99.0 84 20 112/54 (73) 99 Room Air 03/13/17 06:00 2.0 I&O- Last 24 Hours up to 6 AM 03/14/17 06:00 Intake Total 540 ml Balance 540 ml Laboratory Data 24H LABS Laboratory Tests 2 03/13/17 05:55: Nucleated Red Blood Cells % (auto) 0.0, Anion Gap 7L, Glomerular Filtration Rate > 60.0, Blood Urea Nitrogen 3L, Creatinine 0.49L, Sodium Level 144, Potassium Level 3.3L, Chloride Level 113H, Carbon Dioxide Level 24, Calcium Level 8.3L, Magnesium Level 1.9 CBC/BMP Laboratory Tests 03/13/17 05:55 Red Blood Count 3.09 L, Mean Corpuscular Volume 92.9, Mean Corpuscular Hemoglobin 30.1, Mean Corpuscular Hemoglobin Concent 32.4, Red Cell Distribution Width 15.2 H, Calcium Level 8.3 L Microbiology Microbiology 03/11/17 Stool Occult Blood (ABISAI) - Final, Complete 03/09/17 Gastrointestinal Tract Panel (PCR) - Final, Complete Campylobacter CASSIDY DECKER DO Mar 13, 2017 15:43
[2017-03-13] MEDS: MIRTAZAPINE 15 MG TAB PO SCH (21:14)
[2017-03-13 22:00] VITALS: BP 138/72
[2017-03-14 06:00] VITALS: BP 154/76
[2017-03-14 06:35] LABS: MEAN CORPUSCULAR HEMOGLOBIN 30.4 pg (27.0-33.0); MEAN CORPUSCULAR HGB CONC 32.9 g/dl (32.0-36.5); MEAN CORPUSCULAR VOLUME 92.6 fl (80.0-96.0); PLATELET COUNT, AUTOMATED 283 10^3/uL (150-450); RED CELL DISTRIBUTION WIDTH 15.2 % (11.5-14.5); WHITE BLOOD COUNT 6.1 10^3/uL (4.0-10.0)
[2017-03-14 07:13] LABS: ANION GAP 5 MEQ/L (8-16); BLOOD UREA NITROGEN 9 MG/DL (7-18); CALCIUM LEVEL 8.3 MG/DL (8.8-10.2); CARBON DIOXIDE LEVEL 27 MEQ/L (21-32); CHLORIDE LEVEL 113 MEQ/L (98-107); CREATININE FOR GFR 0.53 MG/DL (0.55-1.02); GLOMERULAR FILTRATION RATE > 60.0 (>32); GLUCOSE, FASTING 84 MG/DL (83-110); MAGNESIUM LEVEL 1.8 MG/DL (1.8-2.4); POTASSIUM SERUM 3.6 MEQ/L (3.5-5.1); SODIUM LEVEL 145 MEQ/L (136-145)
[2017-03-14] MEDS: AZITHROMYCIN 250 MG TAB PO SCH (08:49)
[2017-03-14] MEDS: SUCRALFATE SUSP 1GM/10ML UD PO SCH (08:49)
[2017-03-14] MEDS: APIXABAN 5 MG TAB (ELIQUIS) PO SCH (08:50)
[2017-03-14] MEDS: ATORVASTATIN 20 MG TAB PO SCH (08:50)
[2017-03-14 08:51] VITALS: BP 136/86
[2017-03-14] MEDS: POTASSIUM CHLORIDE 10 MEQ SR TABLET PO SCH (08:51)
[2017-03-14] MEDS: ATENOLOL 50 MG TAB PO SCH (08:51)
[2017-03-14] MEDS: OMEPRAZOLE 20 MG CAP PO SCH (08:51)
[2017-03-14] MEDS: GABAPENTIN 100 MG CAP PO SCH (08:51)
--- NOTE | 2017-03-14 11:05 | IPNPDOC ---
Text Note Date of Service The patient was seen on 03/14/17. NOTE Pt with no acute changes overnight. Will be d/c today. Please see d/c summary by Dr. Egan on 03/13/17. VS,Fishbone, I+O VS, Fishbone, I+O Laboratory Tests 03/14/17 06:24 Red Blood Count 3.09 L, Mean Corpuscular Volume 92.6, Mean Corpuscular Hemoglobin 30.4, Mean Corpuscular Hemoglobin Concent 32.9, Red Cell Distribution Width 15.2 H, Calcium Level 8.3 L Vital Signs Date Time Temp Pulse Resp B/P (MAP) Pulse Ox O2 Delivery O2 Flow Rate FiO2 03/14/17 08:51 85 136/86 03/14/17 08:00 Room Air 03/14/17 06:00 98.1 17 95 03/13/17 06:00 2.0 I&O- Last 24 Hours up to 6 AM 03/15/17 06:00 Intake Total 240 ml Balance 240 ml DEWAYNE JORDAN MD Mar 14, 2017 11:05
== END 2017-03-14 11:17 | disposition home health service (06) | DRG 372 ==
LOC: M ED 14:39 → M ED INP 17:15 → M MSPAV 18:47
PROVIDERS: ADMIT Internal Medicine; ATTEND Internal Medicine
DX: A04.5 Campylobacter enteritis (principal); I50.32 Chronic diastolic (congestive) heart failure; I11.0 Hypertensive heart disease with heart failure; E87.6 Hypokalemia; E83.42 Hypomagnesemia; I48.0 Paroxysmal atrial fibrillation; K21.9 Gastro-esophageal reflux disease without esophagitis; Z90.49 Acquired absence of other specified parts of digestive tract; Z90.711 Acquired absence of uterus with remaining cervical stump; Z96.652 Presence of left artificial knee joint; Z96.642 Presence of left artificial hip joint; Z79.01 Long term (current) use of anticoagulants; Z79.899 Other long term (current) drug therapy

== ENCOUNTER 2017-05-28 08:20 | Emergency (ER) | payer MEDICARE ==
[2017-05-28] MEDS: METOCLOPRAMIDE INJ 10MG/2ML VIAL (J2765) IV (11:33)
[2017-05-28] MEDS: KETOROLAC 30 MG/ML VIAL (J1885) IV (11:33)
== END 2017-05-28 12:44 | disposition home or self-care (01) ==
LOC: M ED 08:20
DX: R51 Headache (principal); H70.10 Chronic mastoiditis, unspecified ear; I48.91 Unspecified atrial fibrillation; I50.9 Heart failure, unspecified; I11.0 Hypertensive heart disease with heart failure; K21.9 Gastro-esophageal reflux disease without esophagitis; M54.6 Pain in thoracic spine; G89.29 Other chronic pain; F95.9 Tic disorder, unspecified; Z91.030 Bee allergy status; Z98.890 Other specified postprocedural states

== ENCOUNTER 2017-05-29 12:52 | Inpatient (IN) | payer MEDICARE ==
[2017-05-29] MEDS: ATENOLOL 50 MG TAB PO ×2 (14:30→20:58)
[2017-05-29 15:38] LABS: BASO % 0.7 % (0.0-1.0); EOS % 0.3 % (0.0-3.0); HEMATOCRIT 32.7 % (36.0-47.0); HEMOGLOBIN 10.5 g/dl (12.0-16.0); IMMATURE GRANULOCYTE % 0.2 % (0-0); LYMPH # 0.8 10^3/uL (1.5-4.5); LYMPH % 14.4 % (24.0-44.0); MEAN CORPUSCULAR HEMOGLOBIN 29.9 pg (27.0-33.0); MEAN CORPUSCULAR HGB CONC 32.1 g/dl (32.0-36.5); MEAN CORPUSCULAR VOLUME 93.2 fl (80.0-96.0); MONO # 0.8 10^3/uL (0.0-0.8); MONO % 13.6 % (0.0-5.0); NEUTROPHILS # 4.1 10^3/uL (1.8-7.7); NEUTROPHILS % 70.8 % (36.0-66.0); PLATELET COUNT, AUTOMATED 240 10^3/uL (150-450); RED BLOOD COUNT 3.51 10^6/uL (4.00-5.40); RED CELL DISTRIBUTION WIDTH 15.4 % (11.5-14.5); WHITE BLOOD COUNT 5.8 10^3/uL (4.0-10.0)
[2017-05-29 15:40] LABS: AMMONIA < 10 uMOL/L (<32)
[2017-05-29 16:01] LABS: LACTIC ACID SEPSIS PROTOCOL 1.5 MMOL/L (0.4-2.0)
[2017-05-29 16:07] LABS: ACETAMINOPHEN LEVEL < 2.0 UG/ML (10.0-30.0); ALBUMIN 3.8 GM/DL (3.2-5.2); ALBUMIN/GLOBULIN RATIO 1.09 (1.00-1.93); ALKALINE PHOSPHATASE 121 U/L (45-117); ALT/SGPT 20 U/L (12-78); ANION GAP 8 MEQ/L (8-16); AST/SGOT 28 U/L (7-37); BILIRUBIN,DIRECT 0.2 MG/DL (0.0-0.2); BILIRUBIN,TOTAL 0.7 MG/DL (0.2-1.0); BLOOD UREA NITROGEN 22 MG/DL (7-18); CALCIUM LEVEL 9.3 MG/DL (8.8-10.2); CARBON DIOXIDE LEVEL 27 MEQ/L (21-32); CHLORIDE LEVEL 106 MEQ/L (98-107); CPK CREATINE PHOSPHOKINASE 350 U/L (26-192); GLUCOSE, FASTING 92 MG/DL (70-100); POTASSIUM SERUM 3.8 MEQ/L (3.5-5.1); SALICYLATE LEVEL < 1.7 MG/DL (5.0-30.0); SODIUM LEVEL 141 MEQ/L (136-145); TOTAL PROTEIN 7.3 GM/DL (6.4-8.2); TROPONIN I 0.02 NG/ML (< 0.10)
[2017-05-29 16:13] LABS: CREATININE FOR GFR 0.77 MG/DL (0.55-1.30); GLOMERULAR FILTRATION RATE > 60.0 (>32); MB/CK RELATIVE INDEX 1.71 (< OR =4)
[2017-05-29 16:46] LABS: KETONE, URINE AUTO RFX 1+ mg/dL (NEGATIVE); LEUKOCYTE ESTERASE UR AUTO RFX 2+ (NEGATIVE); MUCUS, URINE RFX SMALL (NEGATIVE); NITRITE, URINE AUTO RFX NEGATIVE (NEGATIVE); RBC, URINE AUTO RFX 13 /HPF (0-3); SPECIFIC GRAVITY UR AUTO RFX 1.026 (1.002-1.035); SQUAM EPITHELIAL CELL UR AURFX 1 /HPF (0-6); WBC, URINE AUTO RFX 9 /HPF (0-3)
[2017-05-29 16:49] LABS: AMPHETAMINES LEVEL URINE NEGATIVE (NEGATIVE); BARBITURATES URINE NEGATIVE (NEGATIVE); BENZODIAZEPINES URINE NEGATIVE (NEGATIVE); CANNABINOIDS URINE NEGATIVE (NEGATIVE); COCAINE METABOLITE URINE NEGATIVE (NEGATIVE); METHADONE URINE NEGATIVE (NEGATIVE); OPIATES URINE POSITIVE (NEGATIVE); PHENCYCLIDINE URINE NEGATIVE (NEGATIVE)
[2017-05-29] MEDS: FUROSEMIDE 40 MG/4 ML VIAL (J1940) IV (17:30)
[2017-05-29 17:44] LABS: MAGNESIUM LEVEL 1.9 MG/DL (1.8-2.4); PHOSPHORUS LEVEL 5.7 MG/DL (2.5-4.9)
[2017-05-29 19:24] LABS: INR 1.08; PROTHROMBIN TIME 14.2 SECONDS (12.4-14.5)
[2017-05-29 19:25] LABS: PARTIAL THROMBOPLASTIN TIME 34.1 SECONDS (26.8-37.9)
[2017-05-29 19:31] LABS: ERYTHROCYTE SEDIMENTATION RATE 30 mm/hr (0-42)
[2017-05-29 19:44] LABS: C REACTIVE PROTEIN QUANTITATIV 0.51 MG/DL (0.00-0.30)
[2017-05-29 19:50] LABS: AMMONIA 19 uMOL/L (<32)
[2017-05-29 19:52] LABS: CPK CREATINE PHOSPHOKINASE 396 U/L (26-192); TROPONIN I 0.02 NG/ML (< 0.10)
[2017-05-29 19:53] LABS: CK-MB VALUE MASS 5.7 NG/ML (0.0-3.6); MB/CK RELATIVE INDEX 1.43 (< OR =4)
[2017-05-29] MEDS: MULTIVITAMINS/MINERALS THERAP 1 TAB PO (20:55)
[2017-05-29] MEDS: GABAPENTIN 100 MG CAP PO (20:55)
[2017-05-29] MEDS: DOCUSATE SODIUM 100 MG CAP PO (20:55)
[2017-05-29] MEDS: OMEPRAZOLE 20 MG CAP PO (20:55)
[2017-05-29] MEDS: APIXABAN 5 MG TAB (ELIQUIS) PO (20:57)
[2017-05-29] MEDS: FOSFOMYCIN TROMETHAMINE 3 GM POWDER PACKET (MONUROL) PO (21:55)
[2017-05-29] MEDS ORDERED: HEPARIN SOD (PORCINE) 5000 UNITS/ML VIAL SC (22:00)
[2017-05-30 06:54] LABS: BASO % 0.8 % (0.0-1.0); EOS # 0.1 10^3/uL (0.0-0.50); HEMATOCRIT 32.4 % (36.0-47.0); HEMOGLOBIN 10.4 g/dl (12.0-16.0); IMMATURE GRANULOCYTE % 0.2 % (0-0); LYMPH # 0.9 10^3/uL (1.5-4.5); MEAN CORPUSCULAR HEMOGLOBIN 29.5 pg (27.0-33.0); MEAN CORPUSCULAR HGB CONC 32.1 g/dl (32.0-36.5); MONO # 0.8 10^3/uL (0.0-0.8); MONO % 15.5 % (0.0-5.0); NEUTROPHILS # 3.1 10^3/uL (1.8-7.7); NEUTROPHILS % 63.5 % (36.0-66.0); PLATELET COUNT, AUTOMATED 249 10^3/uL (150-450); RED BLOOD COUNT 3.52 10^6/uL (4.00-5.40); RED CELL DISTRIBUTION WIDTH 15.5 % (11.5-14.5); WHITE BLOOD COUNT 4.9 10^3/uL (4.0-10.0)
[2017-05-30 07:00] LABS: ANION GAP 9 MEQ/L (8-16); BLOOD UREA NITROGEN 28 MG/DL (7-18); CALCIUM LEVEL 8.9 MG/DL (8.8-10.2); CARBON DIOXIDE LEVEL 26 MEQ/L (21-32); CHLORIDE LEVEL 108 MEQ/L (98-107); CREATININE FOR GFR 0.96 MG/DL (0.55-1.30); GLOMERULAR FILTRATION RATE 58.5 (>32); GLUCOSE, FASTING 99 MG/DL (70-100); POTASSIUM SERUM 3.5 MEQ/L (3.5-5.1); SODIUM LEVEL 143 MEQ/L (136-145)
[2017-05-30] MEDS: OMEPRAZOLE 20 MG CAP PO ×2 (08:14→20:38)
[2017-05-30] MEDS: SUCRALFATE SUSP 1GM/10ML UD PO ×3 (08:14→16:53)
[2017-05-30] MEDS: ATORVASTATIN 20 MG TAB PO (08:14)
[2017-05-30] MEDS: ATENOLOL 50 MG TAB PO ×2 (08:14→20:36)
[2017-05-30] MEDS: APIXABAN 5 MG TAB (ELIQUIS) PO ×2 (08:14→20:37)
[2017-05-30] MEDS: GABAPENTIN 100 MG CAP PO ×3 (08:14→20:37)
[2017-05-30] MEDS: DOCUSATE SODIUM 100 MG CAP PO ×2 (08:14→20:37)
[2017-05-30] MEDS: MULTIVITAMINS/MINERALS THERAP 1 TAB PO ×2 (08:14→20:37)
[2017-05-30] MEDS: ACETAMINOPHEN TAB 650MG DOSE (2X325MG) PO (09:59)
[2017-05-30] MEDS: ONDANSETRON 4MG/2ML VIAL (J2405) IV (17:35)
[2017-05-31 06:57] LABS: BASO % 0.5 % (0.0-1.0); EOS # 0.2 10^3/uL (0.0-0.50); EOS % 1.9 % (0.0-3.0); HEMATOCRIT 35.5 % (36.0-47.0); HEMOGLOBIN 11.4 g/dl (12.0-16.0); IMMATURE GRANULOCYTE % 0.4 % (0-0); LYMPH # 1.1 10^3/uL (1.5-4.5); LYMPH % 14.5 % (24.0-44.0); MEAN CORPUSCULAR HEMOGLOBIN 30.1 pg (27.0-33.0); MEAN CORPUSCULAR HGB CONC 32.1 g/dl (32.0-36.5); MEAN CORPUSCULAR VOLUME 93.7 fl (80.0-96.0); MONO # 1.2 10^3/uL (0.0-0.8); MONO % 15.2 % (0.0-5.0); NEUTROPHILS # 5.3 10^3/uL (1.8-7.7); NEUTROPHILS % 67.5 % (36.0-66.0); PLATELET COUNT, AUTOMATED 256 10^3/uL (150-450); RED BLOOD COUNT 3.79 10^6/uL (4.00-5.40); RED CELL DISTRIBUTION WIDTH 15.6 % (11.5-14.5); WHITE BLOOD COUNT 7.8 10^3/uL (4.0-10.0)
[2017-05-31 07:13] LABS: ANION GAP 8 MEQ/L (8-16); BLOOD UREA NITROGEN 43 MG/DL (7-18); CALCIUM LEVEL 9.5 MG/DL (8.8-10.2); CARBON DIOXIDE LEVEL 27 MEQ/L (21-32); CHLORIDE LEVEL 107 MEQ/L (98-107); CREATININE FOR GFR 1.27 MG/DL (0.55-1.30); GLOMERULAR FILTRATION RATE 42.4 (>32); GLUCOSE, FASTING 109 MG/DL (70-100); POTASSIUM SERUM 3.5 MEQ/L (3.5-5.1); SODIUM LEVEL 142 MEQ/L (136-145)
[2017-05-31] MEDS: SUCRALFATE SUSP 1GM/10ML UD PO ×3 (07:38→16:12)
[2017-05-31] MEDS: GABAPENTIN 100 MG CAP PO ×3 (07:42→20:23)
[2017-05-31] MEDS: OMEPRAZOLE 20 MG CAP PO ×2 (07:42→20:23)
[2017-05-31] MEDS: APIXABAN 5 MG TAB (ELIQUIS) PO ×2 (07:42→20:23)
[2017-05-31] MEDS: ATENOLOL 50 MG TAB PO ×2 (07:42→20:29)
[2017-05-31] MEDS: ATORVASTATIN 20 MG TAB PO (07:42)
[2017-05-31] MEDS: MULTIVITAMINS/MINERALS THERAP 1 TAB PO ×2 (07:43→20:23)
[2017-05-31] MEDS: DOCUSATE SODIUM 100 MG CAP PO ×2 (07:45→20:23)
[2017-06-01 07:00] LABS: BASO % 0.7 % (0.0-1.0); EOS # 0.2 10^3/uL (0.0-0.50); EOS % 3.5 % (0.0-3.0); HEMATOCRIT 33.6 % (36.0-47.0); HEMOGLOBIN 10.8 g/dl (12.0-16.0); IMMATURE GRANULOCYTE % 0.3 % (0-0); LYMPH # 1.2 10^3/uL (1.5-4.5); LYMPH % 19.8 % (24.0-44.0); MEAN CORPUSCULAR HEMOGLOBIN 29.7 pg (27.0-33.0); MEAN CORPUSCULAR HGB CONC 32.1 g/dl (32.0-36.5); MEAN CORPUSCULAR VOLUME 92.3 fl (80.0-96.0); MONO # 0.9 10^3/uL (0.0-0.8); MONO % 15.8 % (0.0-5.0); NEUTROPHILS # 3.6 10^3/uL (1.8-7.7); NEUTROPHILS % 59.9 % (36.0-66.0); PLATELET COUNT, AUTOMATED 252 10^3/uL (150-450); RED BLOOD COUNT 3.64 10^6/uL (4.00-5.40); RED CELL DISTRIBUTION WIDTH 15.4 % (11.5-14.5)
[2017-06-01 07:13] LABS: ANION GAP 7 MEQ/L (8-16); BLOOD UREA NITROGEN 45 MG/DL (7-18); CALCIUM LEVEL 8.9 MG/DL (8.8-10.2); CARBON DIOXIDE LEVEL 26 MEQ/L (21-32); CHLORIDE LEVEL 107 MEQ/L (98-107); CREATININE FOR GFR 0.86 MG/DL (0.55-1.30); GLOMERULAR FILTRATION RATE > 60.0 (>32); GLUCOSE, FASTING 93 MG/DL (70-100); POTASSIUM SERUM 3.7 MEQ/L (3.5-5.1); SODIUM LEVEL 140 MEQ/L (136-145)
[2017-06-01] MEDS: MULTIVITAMINS/MINERALS THERAP 1 TAB PO ×2 (09:01→21:05)
[2017-06-01] MEDS: OMEPRAZOLE 20 MG CAP PO ×2 (09:01→21:05)
[2017-06-01] MEDS: ATENOLOL 50 MG TAB PO ×2 (09:01→21:06)
[2017-06-01] MEDS: ATORVASTATIN 20 MG TAB PO (09:01)
[2017-06-01] MEDS: GABAPENTIN 100 MG CAP PO ×3 (09:01→21:06)
[2017-06-01] MEDS: SUCRALFATE SUSP 1GM/10ML UD PO ×3 (09:02→16:43)
[2017-06-01] MEDS: DOCUSATE SODIUM 100 MG CAP PO ×2 (09:02→21:00)
[2017-06-01] MEDS: APIXABAN 5 MG TAB (ELIQUIS) PO ×2 (09:02→21:05)
[2017-06-02 00:06] LABS: VITAMIN D 1,25 DIHYDROXY 59.2 pg/mL (19.9-79.3)
[2017-06-02] MEDS: SUCRALFATE SUSP 1GM/10ML UD PO (07:35)
[2017-06-02] MEDS: DOCUSATE SODIUM 100 MG CAP PO (07:40)
[2017-06-02] MEDS: OMEPRAZOLE 20 MG CAP PO (08:40)
[2017-06-02] MEDS: APIXABAN 5 MG TAB (ELIQUIS) PO (08:40)
[2017-06-02] MEDS: GABAPENTIN 100 MG CAP PO (08:40)
[2017-06-02] MEDS: ATORVASTATIN 20 MG TAB PO (08:40)
[2017-06-02] MEDS: MULTIVITAMINS/MINERALS THERAP 1 TAB PO (08:40)
[2017-06-02] MEDS: ATENOLOL 50 MG TAB PO (08:41)
== END 2017-06-02 12:33 | disposition home health service (06) | DRG 689 ==
LOC: M ED 12:52 → M ED INP 17:38 → M MS4PR 19:56
DX: N39.0 Urinary tract infection, site not specified (principal); G93.41 Metabolic encephalopathy; I50.32 Chronic diastolic (congestive) heart failure; H70.10 Chronic mastoiditis, unspecified ear; I48.0 Paroxysmal atrial fibrillation; I11.0 Hypertensive heart disease with heart failure; K21.9 Gastro-esophageal reflux disease without esophagitis; M54.6 Pain in thoracic spine; G89.29 Other chronic pain; F95.9 Tic disorder, unspecified; Z91.030 Bee allergy status; Z98.890 Other specified postprocedural states; R51 Headache; Z88.8 Allergy status to other drugs, medicaments and biological substances; Z79.01 Long term (current) use of anticoagulants; Z79.899 Other long term (current) drug therapy; J44.9 Chronic obstructive pulmonary disease, unspecified; Z96.641 Presence of right artificial hip joint; Z96.651 Presence of right artificial knee joint

== ENCOUNTER 2017-06-21 05:10 | Inpatient (IN) | payer MEDICARE, MEDICAID ==
[2017-06-21 05:50] LABS: BASO % 0.6 % (0.0-1.0); EOS # 0.1 10^3/uL (0.0-0.50); HEMATOCRIT 29.5 % (36.0-47.0); HEMOGLOBIN 9.5 g/dl (12.0-16.0); IMMATURE GRANULOCYTE % 0.4 % (0-3.0); LYMPH # 0.5 10^3/uL (1.5-4.5); LYMPH % 9.4 % (24.0-44.0); MEAN CORPUSCULAR HEMOGLOBIN 30.4 pg (27.0-33.0); MEAN CORPUSCULAR HGB CONC 32.2 g/dl (32.0-36.5); MEAN CORPUSCULAR VOLUME 94.2 fl (80.0-96.0); MONO # 0.9 10^3/uL (0.0-0.8); MONO % 17.1 % (0.0-5.0); NEUTROPHILS # 3.6 10^3/uL (1.8-7.7); NEUTROPHILS % 71.5 % (36.0-66.0); PLATELET COUNT, AUTOMATED 219 10^3/uL (150-450); RED BLOOD COUNT 3.13 10^6/uL (4.00-5.40); RED CELL DISTRIBUTION WIDTH 14.7 % (11.5-14.5); WHITE BLOOD COUNT 5.1 10^3/uL (4.0-10.0)
[2017-06-21 06:00] LABS: ANION GAP 8 MEQ/L (8-16); BLOOD UREA NITROGEN 16 MG/DL (7-18); CALCIUM LEVEL 8.5 MG/DL (8.8-10.2); CARBON DIOXIDE LEVEL 28 MEQ/L (21-32); CHLORIDE LEVEL 105 MEQ/L (98-107); CREATININE FOR GFR 0.67 MG/DL (0.55-1.30); GLOMERULAR FILTRATION RATE > 60.0 (>32); GLUCOSE, FASTING 107 MG/DL (70-100); POTASSIUM SERUM 3.3 MEQ/L (3.5-5.1); SODIUM LEVEL 141 MEQ/L (136-145)
[2017-06-21] MEDS: IPRATROPIUM 0.5MG/ALBUTEROL 2.5MG INH SOL UD 3ML (DUONEB)(J7620) NEB ×7 (06:00→20:39)
[2017-06-21 06:01] LABS: VENOUS BASE EXCESS -2.7 (-2.0-2.0); VENOUS HCO3 22.9 MEQ/L (23.0-27.0); VENOUS O2 SATURATION 74.1 % (60.0-80.0); VENOUS PARTIAL PRESSURE CO2 43.2 mmHg (38.0-50.0); VENOUS PARTIAL PRESSURE O2 42.1 mmHg (30.0-50.0); VENOUS PH 7.343 UNITS (7.330-7.430); VENOUS STANDARD HCO3 21.8 MEQ/L; VENOUS TOTAL CO2 24.3 MEQ/L (24.0-28.0)
[2017-06-21 06:04] LABS: LACTIC ACID SEPSIS PROTOCOL 1.4 MMOL/L (0.4-2.0)
[2017-06-21 06:35] LABS: INFLUENZA A AMPLIFICATION NEGATIVE (NEGATIVE); INFLUENZA B AMPLIFICATION NEGATIVE (NEGATIVE)
[2017-06-21] MEDS: AZITHROMYCIN 250 MG TAB PO (06:37)
[2017-06-21] MEDS: CEFUROXIME SODIUM 1.5 GM in D5W MINI-BAG PLUS 50 ML IV (06:37)
[2017-06-21 08:03] LABS: ERYTHROCYTE SEDIMENTATION RATE 41 mm/hr (0-42)
[2017-06-21 08:04] LABS: C REACTIVE PROTEIN QUANTITATIV 1.13 MG/DL (0.00-0.30); CPK CREATINE PHOSPHOKINASE 40 U/L (26-192); NT-PRO BNP 5534 PG/ML (<450); TROPONIN I < 0.02 NG/ML (< 0.10)
[2017-06-21] MEDS: FUROSEMIDE 40 MG/4 ML VIAL (J1940) IV ×3 (08:28→17:48)
[2017-06-21] MEDS: POTASSIUM CHLORIDE 10 MEQ SR TABLET PO (08:29)
[2017-06-21] MEDS ORDERED: NITROGLYCERIN 0.4 MG SUBL TABLET SL (09:30)
[2017-06-21] MEDS ORDERED: LOPERAMIDE 2 MG CAP PO (09:30)
[2017-06-21] MEDS: SUCRALFATE 1 GM TAB PO ×3 (09:56→18:28)
[2017-06-21] MEDS: ENOXAPARIN 30 MG/0.3 ML SYR (J1650) SC (09:56)
[2017-06-21] MEDS: MULTIVITAMINS/MINERALS THERAP 1 TAB PO (10:00)
[2017-06-21] MEDS: OMEPRAZOLE 20 MG CAP PO ×2 (10:00→20:19)
[2017-06-21] MEDS: ATENOLOL 50 MG TAB PO ×2 (10:00→20:19)
[2017-06-21] MEDS: GABAPENTIN 100 MG CAP PO ×3 (10:00→20:18)
[2017-06-21] MEDS: APIXABAN 5 MG TAB (ELIQUIS) PO ×2 (10:00→20:18)
[2017-06-21] MEDS: ATORVASTATIN 20 MG TAB PO (10:00)
[2017-06-21] MEDS: NORCO, ANEXSIA 5/325MG TABLET (HYDROcodone/ACETAMINOPHEN) PO (10:01)
[2017-06-21 13:21] LABS: CPK CREATINE PHOSPHOKINASE 37 U/L (26-192); TROPONIN I < 0.02 NG/ML (< 0.10)
[2017-06-21] MEDS: ACETAMINOPHEN TAB 650MG DOSE (2X325MG) PO (16:09)
[2017-06-21] MEDS ORDERED: METAL LOCK LOOP XX (17:14)
[2017-06-21 18:30] LABS: CPK CREATINE PHOSPHOKINASE 41 U/L (26-192); MB/CK RELATIVE INDEX 2.43 (< OR =4); TROPONIN I < 0.02 NG/ML (< 0.10)
[2017-06-21] MEDS: MIRTAZAPINE 15 MG TAB PO (20:18)
[2017-06-22] MEDS: FUROSEMIDE 40 MG/4 ML VIAL (J1940) IV ×3 (00:14→17:10)
[2017-06-22] MEDS: IPRATROPIUM 0.5MG/ALBUTEROL 2.5MG INH SOL UD 3ML (DUONEB)(J7620) NEB ×8 (00:28→19:58)
[2017-06-22 01:03] LABS: CPK CREATINE PHOSPHOKINASE 52 U/L (26-192); MB/CK RELATIVE INDEX 1.92 (< OR =4); TROPONIN I < 0.02 NG/ML (< 0.10)
[2017-06-22] MEDS: SUCRALFATE 1 GM TAB PO ×3 (01:08→17:10)
[2017-06-22 07:12] LABS: HEMATOCRIT 29.9 % (36.0-47.0); HEMOGLOBIN 9.9 g/dl (12.0-16.0); IMMATURE GRANULOCYTE % 0.5 % (0-3.0); LYMPH % 4.3 % (24.0-44.0); MEAN CORPUSCULAR HEMOGLOBIN 30.7 pg (27.0-33.0); MEAN CORPUSCULAR HGB CONC 33.1 g/dl (32.0-36.5); MEAN CORPUSCULAR VOLUME 92.9 fl (80.0-96.0); MONO # 0.6 10^3/uL (0.0-0.8); MONO % 8.3 % (0.0-5.0); NEUTROPHILS # 6.5 10^3/uL (1.8-7.7); NEUTROPHILS % 86.9 % (36.0-66.0); PLATELET COUNT, AUTOMATED 221 10^3/uL (150-450); RED BLOOD COUNT 3.22 10^6/uL (4.00-5.40); RED CELL DISTRIBUTION WIDTH 14.8 % (11.5-14.5); WHITE BLOOD COUNT 7.5 10^3/uL (4.0-10.0)
[2017-06-22 07:32] LABS: ANION GAP 10 MEQ/L (8-16); BLOOD UREA NITROGEN 20 MG/DL (7-18); CALCIUM LEVEL 8.4 MG/DL (8.8-10.2); CARBON DIOXIDE LEVEL 30 MEQ/L (21-32); CHLORIDE LEVEL 101 MEQ/L (98-107); CREATININE FOR GFR 0.94 MG/DL (0.55-1.30); GLUCOSE, FASTING 108 MG/DL (70-100); POTASSIUM SERUM 3.3 MEQ/L (3.5-5.1); SODIUM LEVEL 141 MEQ/L (136-145)
[2017-06-22 07:45] LABS: LYMPH # 0.3 10^3/uL (1.5-4.5)
[2017-06-22] MEDS ORDERED: FUROSEMIDE 40 MG/4 ML VIAL (J1940) IV (08:00)
[2017-06-22] MEDS: POTASSIUM CHLORIDE 10% LIQ 20 MEQ/15 ML UDC PO ×3 (09:20→11:10)
[2017-06-22] MEDS: OMEPRAZOLE 20 MG CAP PO ×2 (09:22→21:42)
[2017-06-22] MEDS: APIXABAN 5 MG TAB (ELIQUIS) PO ×2 (09:22→21:43)
[2017-06-22] MEDS: AZITHROMYCIN 250 MG TAB PO (09:22)
[2017-06-22] MEDS: guaiFENesin ER 600 MG TAB PO ×2 (09:22→21:42)
[2017-06-22] MEDS: ATENOLOL 25 MG TAB PO ×2 (09:22→21:00)
[2017-06-22] MEDS: MULTIVITAMINS/MINERALS THERAP 1 TAB PO (09:22)
[2017-06-22] MEDS: ATORVASTATIN 20 MG TAB PO (09:22)
[2017-06-22] MEDS: CEFTRIAXONE SOD 1 GM in APPROPRIATE DILUENT 1 EA IV (11:09)
[2017-06-22] MEDS: ONDANSETRON 4MG/2ML VIAL (J2405) IV (14:56)
[2017-06-22] MEDS: ACETAMINOPHEN TAB 650MG DOSE (2X325MG) PO (17:11)
[2017-06-22] MEDS: MIRTAZAPINE 15 MG TAB PO (21:42)
[2017-06-23] MEDS: NORCO, ANEXSIA 5/325MG TABLET (HYDROcodone/ACETAMINOPHEN) PO ×2 (00:13→16:44)
[2017-06-23] MEDS: IPRATROPIUM 0.5MG/ALBUTEROL 2.5MG INH SOL UD 3ML (DUONEB)(J7620) NEB ×6 (00:46→19:22)
[2017-06-23] MEDS: BENZONATATE 100 MG CAP PO ×3 (04:03→21:07)
[2017-06-23 06:28] LABS: BASO % 0.3 % (0.0-1.0); EOS # 0.1 10^3/uL (0.0-0.50); HEMATOCRIT 29.9 % (36.0-47.0); HEMOGLOBIN 9.5 g/dl (12.0-16.0); IMMATURE GRANULOCYTE % 0.3 % (0-3.0); LYMPH # 0.8 10^3/uL (1.5-4.5); LYMPH % 10.8 % (24.0-44.0); MEAN CORPUSCULAR HEMOGLOBIN 29.9 pg (27.0-33.0); MEAN CORPUSCULAR HGB CONC 31.8 g/dl (32.0-36.5); MONO # 1.6 10^3/uL (0.0-0.8); MONO % 22.1 % (0.0-5.0); NEUTROPHILS # 4.7 10^3/uL (1.8-7.7); NEUTROPHILS % 65.5 % (36.0-66.0); PLATELET COUNT, AUTOMATED 229 10^3/uL (150-450); RED BLOOD COUNT 3.18 10^6/uL (4.00-5.40); WHITE BLOOD COUNT 7.1 10^3/uL (4.0-10.0)
[2017-06-23] MEDS: ACETAMINOPHEN TAB 650MG DOSE (2X325MG) PO ×2 (06:29→21:08)
[2017-06-23 06:42] LABS: ANION GAP 6 MEQ/L (8-16); BLOOD UREA NITROGEN 32 MG/DL (7-18); CALCIUM LEVEL 8.5 MG/DL (8.8-10.2); CARBON DIOXIDE LEVEL 32 MEQ/L (21-32); CHLORIDE LEVEL 104 MEQ/L (98-107); CREATININE FOR GFR 1.22 MG/DL (0.55-1.30); GLOMERULAR FILTRATION RATE 44.4 (>32); GLUCOSE, FASTING 114 MG/DL (70-100); SODIUM LEVEL 142 MEQ/L (136-145)
[2017-06-23 07:26] LABS: MAGNESIUM LEVEL 1.7 MG/DL (1.8-2.4)
[2017-06-23] MEDS: SUCRALFATE 1 GM TAB PO ×3 (07:30→18:17)
[2017-06-23 07:53] LABS: NT-PRO BNP 4011 PG/ML (<450)
[2017-06-23] MEDS: CEFTRIAXONE SOD 1 GM in APPROPRIATE DILUENT 1 EA IV (10:21)
[2017-06-23] MEDS: OMEPRAZOLE 20 MG CAP PO ×2 (10:22→21:01)
[2017-06-23] MEDS: MULTIVITAMINS/MINERALS THERAP 1 TAB PO (10:22)
[2017-06-23] MEDS: POTASSIUM CHLORIDE 10% LIQ 20 MEQ/15 ML UDC PO (10:22)
[2017-06-23] MEDS: guaiFENesin ER 600 MG TAB PO ×2 (10:23→20:58)
[2017-06-23] MEDS: APIXABAN 5 MG TAB (ELIQUIS) PO ×2 (10:23→21:01)
[2017-06-23] MEDS: ATENOLOL 25 MG TAB PO ×2 (10:23→21:00)
[2017-06-23] MEDS: ATORVASTATIN 20 MG TAB PO (10:23)
[2017-06-23] MEDS: FUROSEMIDE 20 MG TAB PO ×2 (12:25→16:44)
[2017-06-23] MEDS: MAG SULF 1GM/100ML (MAG RUN) 1 GM in APPROPRIATE DILUENT 1 EA IV (12:26)
[2017-06-23] MEDS: MIRTAZAPINE 15 MG TAB PO (20:58)
[2017-06-24] MEDS: IPRATROPIUM 0.5MG/ALBUTEROL 2.5MG INH SOL UD 3ML (DUONEB)(J7620) NEB ×3 (02:36→11:15)
[2017-06-24 05:52] LABS: BASO % 0.2 % (0.0-1.0); EOS # 0.2 10^3/uL (0.0-0.50); HEMATOCRIT 33.5 % (36.0-47.0); HEMOGLOBIN 10.7 g/dl (12.0-16.0); IMMATURE GRANULOCYTE % 1.4 % (0-3.0); LYMPH # 1.4 10^3/uL (1.5-4.5); LYMPH % 14.8 % (24.0-44.0); MEAN CORPUSCULAR HEMOGLOBIN 29.9 pg (27.0-33.0); MEAN CORPUSCULAR HGB CONC 31.9 g/dl (32.0-36.5); MEAN CORPUSCULAR VOLUME 93.6 fl (80.0-96.0); MONO # 1.5 10^3/uL (0.0-0.8); MONO % 16.6 % (0.0-5.0); NEUTROPHILS # 5.9 10^3/uL (1.8-7.7); PLATELET COUNT, AUTOMATED 295 10^3/uL (150-450); RED BLOOD COUNT 3.58 10^6/uL (4.00-5.40); RED CELL DISTRIBUTION WIDTH 15.1 % (11.5-14.5); WHITE BLOOD COUNT 9.1 10^3/uL (4.0-10.0)
[2017-06-24 06:02] LABS: ANION GAP 8 MEQ/L (8-16); BLOOD UREA NITROGEN 27 MG/DL (7-18); CALCIUM LEVEL 8.9 MG/DL (8.8-10.2); CARBON DIOXIDE LEVEL 30 MEQ/L (21-32); CHLORIDE LEVEL 102 MEQ/L (98-107); CREATININE FOR GFR 0.96 MG/DL (0.55-1.30); GLOMERULAR FILTRATION RATE 58.5 (>32); GLUCOSE, FASTING 121 MG/DL (70-100); POTASSIUM SERUM 4.3 MEQ/L (3.5-5.1); SODIUM LEVEL 140 MEQ/L (136-145)
[2017-06-24] MEDS: NORCO, ANEXSIA 5/325MG TABLET (HYDROcodone/ACETAMINOPHEN) PO (07:54)
[2017-06-24] MEDS: FUROSEMIDE 40 MG/4 ML VIAL (J1940) IV (08:13)
[2017-06-24] MEDS: MAG SULF 1GM/100ML (MAG RUN) 1 GM in APPROPRIATE DILUENT 1 EA IV (08:13)
[2017-06-24] MEDS: SUCRALFATE 1 GM TAB PO (08:13)
[2017-06-24] MEDS: FUROSEMIDE 20 MG TAB PO (09:51)
[2017-06-24] MEDS: POTASSIUM CHLORIDE 10% LIQ 20 MEQ/15 ML UDC PO (09:51)
[2017-06-24] MEDS: CEFTRIAXONE SOD 1 GM in APPROPRIATE DILUENT 1 EA IV (09:51)
[2017-06-24] MEDS: APIXABAN 5 MG TAB (ELIQUIS) PO (09:52)
[2017-06-24] MEDS: guaiFENesin ER 600 MG TAB PO (09:52)
[2017-06-24] MEDS: OMEPRAZOLE 20 MG CAP PO (09:52)
[2017-06-24] MEDS: ATORVASTATIN 20 MG TAB PO (09:52)
[2017-06-24] MEDS: ATENOLOL 25 MG TAB PO (09:52)
[2017-06-24] MEDS: MULTIVITAMINS/MINERALS THERAP 1 TAB PO (09:52)
== END 2017-06-24 12:40 | disposition home or self-care (01) | DRG 193 ==
LOC: M ICU 06-22 08:12 → M PCU 06-22 17:23 → M ED 05:10 → M ED INP 07:24
DX: J12.1 Respiratory syncytial virus pneumonia (principal); I50.43 Acute on chronic combined systolic (congestive) and diastolic (congestive) heart failure; I48.0 Paroxysmal atrial fibrillation; I11.0 Hypertensive heart disease with heart failure; K21.9 Gastro-esophageal reflux disease without esophagitis; J43.9 Emphysema, unspecified; I34.0 Nonrheumatic mitral (valve) insufficiency; Z66 Do not resuscitate; Z96.642 Presence of left artificial hip joint; Z96.652 Presence of left artificial knee joint; Z91.030 Bee allergy status; Z88.8 Allergy status to other drugs, medicaments and biological substances; Z79.01 Long term (current) use of anticoagulants; Z79.899 Other long term (current) drug therapy; Z77.22 Contact with and (suspected) exposure to environmental tobacco smoke (acute) (chronic)

== ENCOUNTER 2017-10-07 09:58 | Emergency (ER) | payer MEDICARE, MEDICAID ==
[2017-10-07 11:02] LABS: BASO % 0.4 % (0.0-1.0); EOS # 0.1 10^3/uL (0.0-0.50); EOS % 2.1 % (0.0-3.0); HEMATOCRIT 34.3 % (36.0-47.0); HEMOGLOBIN 10.7 g/dl (12.0-15.5); IMMATURE GRANULOCYTE % 0.2 % (0-3.0); LYMPH # 0.7 10^3/uL (1.5-4.5); LYMPH % 15.1 % (24.0-44.0); MEAN CORPUSCULAR HEMOGLOBIN 29.4 pg (27.0-33.0); MEAN CORPUSCULAR HGB CONC 31.2 g/dl (32.0-36.5); MEAN CORPUSCULAR VOLUME 94.2 fl (80.0-96.0); MONO # 0.6 10^3/uL (0.0-0.8); MONO % 12.2 % (0.0-5.0); NEUTROPHILS # 3.3 10^3/uL (1.8-7.7); PLATELET COUNT, AUTOMATED 232 10^3/uL (150-450); RED BLOOD COUNT 3.64 10^6/uL (4.00-5.40); RED CELL DISTRIBUTION WIDTH 15.3 % (11.5-14.5); WHITE BLOOD COUNT 4.8 10^3/uL (4.0-10.0)
[2017-10-07 11:15] LABS: ANION GAP 5 MEQ/L (8-16); BLOOD UREA NITROGEN 21 MG/DL (7-18); CALCIUM LEVEL 9.4 MG/DL (8.8-10.2); CARBON DIOXIDE LEVEL 30 MEQ/L (21-32); CHLORIDE LEVEL 107 MEQ/L (98-107); CPK CREATINE PHOSPHOKINASE 69 U/L (26-192); CREATININE FOR GFR 0.72 MG/DL (0.55-1.30); GLOMERULAR FILTRATION RATE > 60.0 (>32); GLUCOSE, FASTING 100 MG/DL (70-100); MAGNESIUM LEVEL 1.9 MG/DL (1.8-2.4); POTASSIUM SERUM 3.6 MEQ/L (3.5-5.1); SODIUM LEVEL 142 MEQ/L (136-145); TROPONIN I < 0.02 NG/ML (< 0.10)
[2017-10-07 11:21] LABS: CK-MB VALUE MASS 1.5 NG/ML (<3.6); MB/CK RELATIVE INDEX 2.17 (< OR =4)
[2017-10-07 11:25] LABS: LACTIC ACID SEPSIS PROTOCOL 0.7 MMOL/L (0.4-2.0)
[2017-10-07 12:03] LABS: KETONE, URINE AUTO RFX NEGATIVE (NEGATIVE); LEUKOCYTE ESTERASE UR AUTO RFX NEGATIVE (NEGATIVE); NITRITE, URINE AUTO RFX NEGATIVE (NEGATIVE); RBC, URINE AUTO RFX 2 /HPF (0-3); SPECIFIC GRAVITY UR AUTO RFX 1.004 (1.002-1.035); SQUAM EPITHELIAL CELL UR AURFX 0 /HPF (0-6); WBC, URINE AUTO RFX 0 /HPF (0-3)
[2017-10-10 11:08] LABS: BEDSIDE GLUCOSE 99 MG/DL (83-110)
== END 2017-10-07 15:08 | disposition home or self-care (01) ==
LOC: M ED 09:58
DX: R42 Dizziness and giddiness (principal); R19.7 Diarrhea, unspecified; I50.30 Unspecified diastolic (congestive) heart failure; G62.9 Polyneuropathy, unspecified; G93.41 Metabolic encephalopathy; M54.9 Dorsalgia, unspecified; K57.92 Diverticulitis of intestine, part unspecified, without perforation or abscess without bleeding; K59.00 Constipation, unspecified; Z96.652 Presence of left artificial knee joint; Z96.642 Presence of left artificial hip joint
CPT/HCPCS: 71045

== ENCOUNTER 2018-04-28 13:29 | Emergency (ER) | payer MEDICARE, MEDICAID ==
[~2018-04-28] VITALS: Ht 165.1 cm; Wt 63.6 kg
[~2018-04-28 13:29] MED LIST changes: +AZIT-12 PO; +EPIP0.3I2 INJ; +GABA-1171 PO; -GABA-279 PO; +HYDR-3713 PO; +IMOD2CAP PO; +IPRA0.00 NEB; +KLOR20TA42 PO; +LASI20TA3 PO; +MAGN400C2 PO; +NEBUMIS2 XX; +NITR4TASL SL; +OMEP20TA PO; +PATIENT COMMENT; +SUCR1SUS PO; +SUCR1TAB56 PO; +TYLE500T78 PO; +VITMTA PO
[2018-04-28] MEDS ORDERED: diazePAM 5 MG TAB PO ONE (13:45)
[2018-04-28] MEDS ORDERED: traMADol 50 MG TAB PO ONE (13:45)
[2018-04-28] MEDS ORDERED: NORCOTAB PO (15:04)
[2018-04-28 15:32] VITALS: BP 121/70
== END 2018-04-28 15:54 | disposition home or self-care (01) ==
LOC: EDBD 13:29 → M ED 13:29
DX: G89.29 Other chronic pain (principal); M54.5 Low back pain; I51.9 Heart disease, unspecified; J44.9 Chronic obstructive pulmonary disease, unspecified; K21.9 Gastro-esophageal reflux disease without esophagitis; I10 Essential (primary) hypertension; Z87.891 Personal history of nicotine dependence; G62.9 Polyneuropathy, unspecified; Z79.01 Long term (current) use of anticoagulants; Z79.899 Other long term (current) drug therapy; Z91.030 Bee allergy status; Z88.6 Allergy status to analgesic agent

== ENCOUNTER 2019-01-22 21:17 | Emergency (ER) | payer MEDICARE, MEDICAID ==
[~2019-01-22] VITALS: Ht 157.5 cm; Wt 54.5 kg
[~2019-01-22 21:17] MED LIST changes: -/FENT50PA TD; -/FENT75PA TD; -/MIRT15TA OR; -/SUCR1TA OR; -/WARF25TA OR; -/WARF5TA OR; +COUM1TAB17 OR; +COUM1TAB18 OR; +FENT1DIS15 TD; +FENT1DIS16 TD; +HYDR-3715 PO; +MIRT1TAB20 OR; +SUCR1TAB56 OR
[2019-01-22 22:38] LABS: HEMATOCRIT 32.7 % (36.0-47.0); HEMOGLOBIN 10.4 g/dl (12.0-15.5); MEAN CORPUSCULAR HEMOGLOBIN 30.7 pg (27.0-33.0); MEAN CORPUSCULAR HGB CONC 31.8 g/dl (32.0-36.5); MEAN CORPUSCULAR VOLUME 96.5 fl (80.0-96.0); PLATELET COUNT, AUTOMATED 175 10^3/uL (150-450); RED BLOOD COUNT 3.39 10^6/uL (4.00-5.40); WHITE BLOOD COUNT 3.7 10^3/uL (4.0-10.0)
[2019-01-22 23:02] LABS: EOSINOPHILS 1 % (0-3); LYMPHOCYTES 20 % (16-44); MONOCYTES 15 % (0-5); NEUTROPHILS 64 % (28-66); PLATELET ESTIMATE NORMAL (NORMAL)
[2019-01-22 23:06] LABS: ALBUMIN 3.4 GM/DL (3.2-5.2); ALT/SGPT 22 U/L (12-78); BILIRUBIN,DIRECT < 0.1 MG/DL (0.0-0.2); BILIRUBIN,TOTAL 0.3 MG/DL (0.2-1.0); BLOOD UREA NITROGEN 30 MG/DL (7-18); CALCIUM LEVEL 8.6 MG/DL (8.8-10.2); CARBON DIOXIDE LEVEL 24 MEQ/L (21-32); CHLORIDE LEVEL 110 MEQ/L (98-107); CREATININE FOR GFR 0.94 MG/DL (0.55-1.30); GLOMERULAR FILTRATION RATE 59.7 (>32); GLUCOSE, FASTING 115 MG/DL (70-100); LIPASE 58 U/L (73-393); POTASSIUM SERUM 3.9 MEQ/L (3.5-5.1); SODIUM LEVEL 144 MEQ/L (136-145); TOTAL PROTEIN 6.8 GM/DL (6.4-8.2)
[2019-01-22] MEDS ORDERED: NS 1,000 ML IV SCH (23:51)
[2019-01-23] MEDS ORDERED: ISOVUE-370 76% 100ML VIAL (Q9967) As Ordered ONE (00:02)
[2019-01-23 00:30] VITALS: BP 144/70
--- NOTE | 2019-01-23 01:49 | REPVR ---
PROCEDURE INFORMATION: Exam: CT Abdomen and Pelvis With Contrast Exam date and time: 01/22/2019 11:52 PM Clinical history: 88 years old, female; Abdominal pain; Localized; Left; Additional info: Left sided abd pain, diarrhea TECHNIQUE: Imaging protocol: Computed tomography of the abdomen and pelvis with intravenous contrast. Radiation optimization: All CT scans at this facility use at least one of these dose optimization techniques: automated exposure control; mA and/or kV adjustment per patient size (includes targeted exams where dose is matched to clinical indication); or iterative reconstruction. Contrast material: ISO; Contrast volume: 100 ml; Contrast route: AC; COMPARISON: CT ABD/PEL W/IV CONTRAST ONLY 03/09/2017 3:47 PM FINDINGS: Limitations: Detail/sensitivity limited by artifacts. Lungs: Atelectasis and/or scarring at the lung bases. Liver: Normal. No mass. Gallbladder and bile ducts: Status post cholecystectomy. Mild intra- and extra-hepatic biliary ductal dilitation, not atypical s/p cholecystectomy. Pancreas: Atrophic pancreas. No evidence of acute pancreatitis. No visible mass. Spleen: Normal. No splenomegaly. Adrenals: Normal. No mass. Kidneys and ureters: No hydronephrosis. No urolithiasis. Stomach and bowel: There is thickening of the johnsno of present the ileum in the left upper abdomen. No pneumatosis. No evidence of obstruction. Appendix: No evidence of appendicitis. Intraperitoneal space: No free air. No significant fluid collection. Vasculature: No abdominal aortic aneurysm. Lymph nodes: No enlarged lymph nodes. Bladder: Unremarkable. Reproductive: Status post hysterectomy. Bones/joints: No acute fracture. Status post left hip arthroplasty. Chronic appearing moderate L1 compression fracture, new since the prior study. Similar appearing mild L3-L5 compression fractures. Osteopenia. Chronic grade 1 spondylolistheses. No dislocation. Soft tissues: Unremarkable. IMPRESSION: 1. Thickening of the johnson of portions of the ileum, which could be due to infectious or inflammatory ileitis. 2. Nonacute/incidental findings above. Electronically signed by: Radhames Goyal On 01/23/2019 01:37:58 AM
== END 2019-01-23 03:23 | disposition home or self-care (01) ==
LOC: M ED 21:17
DX: R19.7 Diarrhea, unspecified (principal); I48.91 Unspecified atrial fibrillation; I11.0 Hypertensive heart disease with heart failure; I50.9 Heart failure, unspecified; K57.90 Diverticulosis of intestine, part unspecified, without perforation or abscess without bleeding; J44.9 Chronic obstructive pulmonary disease, unspecified; K21.9 Gastro-esophageal reflux disease without esophagitis; Z87.19 Personal history of other diseases of the digestive system; Z88.8 Allergy status to other drugs, medicaments and biological substances; Z91.030 Bee allergy status; Z79.899 Other long term (current) drug therapy; Z79.01 Long term (current) use of anticoagulants
CPT/HCPCS: 36415; 74177; 80048; 80076; 83690; 85025; 93041; 99285; Q9967